=== PATIENT | female | born 2000 | race African-American/Black ===

== ENCOUNTER 2019-05-04 18:04 | Emergency (ER) | payer BC, SELFPAY ==
--- NOTE | 2019-05-04 18:58 | ER ---
Nurse's Notes [facility] Name: Eden Lott Age: 18 yrs Sex: Female : 2000 Arrival Date: 05/04/2019 Time: 18:07 Bed 5 Private MD: Diagnosis: Fracture of distal phalanx of great toe Presentation: 05/03 18:16 Chief complaint: Patient states: R first and second toe pain that began 4 hours ago ss after a frozen pack of ground beef fell onto foot out of the freezer. Coronavirus screen: The patient has NOT traveled to a country currently being monitored by the [facility] within the last 14 days. Proceed with normal triage procedures. Ebola Screen: Patient denies exposure to infectious person. Patient denies travel to an Ebola-affected area in the 21 days before illness onset. Initial Sepsis Screen: Does the patient meet any 2 criteria? No. Patient's initial sepsis screen is negative. Does the patient have a suspected source of infection? No. Patient's initial sepsis screen is negative. Risk Assessment: Do you want to hurt yourself or someone else? Patient reports no desire to harm self or others. 18:16 Method Of Arrival: Ambulatory ss 18:16 Acuity: ERIKA 4 ss Historical: - Allergies: 18:17 No Known Allergies; ss - Home Meds: 18:17 None [Active]; ss - PMHx: 18:17 None; ss - PSHx: 18:17 None; ss - Immunization history:: Adult Immunizations up to date. - Social history:: Smoking status: Patient denies any tobacco usage or history of. Vital Signs: 18:16 BP 103 / 70; Pulse 86; Resp 14; Temp 98.9(TE); Pulse Ox 100% on R/A; Weight 68.04 kg; ss Height 5 ft. 2 in. (157.48 cm); Pain 7/10; 18:16 Body Mass Index 27.44 (68.04 kg, 157.48 cm) ED Course: 18:07 Patient arrived in ED. mr 18:17 Triage completed. ss 18:17 Arm band placed on left wrist. ss 18:25 Tea Arrington FNP-C is PHCP. snw 18:25 Mehrdad Walker MD is Attending Physician. snw 19:00 XRAY Foot RIGHT 2 View In Process Unspecified. EDMS 19:13 Mya Mcmillan, RN is Primary Nurse. tl2 Administered Medications: 19:27 Drug: Tetanus-Diphtheria Toxoid Adult 0.5 ml {Human Resources Representative: [employer]. Exp: tl2 01/23/2021. Lot #: [id number]. } Route: IM; Site: right deltoid; 19:28 Drug: [place] 5 mg-325 mg 1 tabs Route: PO; tl2 19:28 Drug: Motrin 400 mg Route: PO; tl2 19:28 Drug: Hibiclens 4 % 1 application Route: Topical; Site: affected area; tl2 Outcome: 18:57 Discharge ordered by . snyarelis 20:19 Patient left the ED. tl2 Signatures: Dispatcher [employer] EDUT Tea Arrington, EDC STAFF RADIOLOGIST-Fiorella Nieto Shelby, KEE SWEET ss Mya Mcmillan, RN RN tl2
--- NOTE | 2019-05-04 18:59 | EDPHYS ---
Physician Documentation [facility] Name: Eden Lott Age: 18 yrs Sex: Female : 2000 Arrival Date: 05/04/2019 Time: 18:07 Bed 5 Private MD: EMANUEL Physician Mehrdad Walker HPI: 05/03 19:21 This 18 yrs old Black Female presents to ER via Ambulatory with complaints of Foot snw Injury. 19:21 The patient presents with decreased range of motion, pain, that is acute, swelling. The snw complaints affect the right first toe. Context: The problem was sustained at home, resulted from frozen meat fell from freezer onto her toe, the patient can partially bear weight, the patient is able to ambulate, with moderate difficulty. Onset: The symptoms/episode began/occurred suddenly, just prior to arrival. Associated signs and symptoms: Pertinent positives: edema, paresthesias. Treatment prior to arrival includes: no previous treatment. Severity of symptoms: At their worst the symptoms were severe. The patient has not experienced similar symptoms in the past. It is unknown whether or not the patient has recently seen a physician. Historical: - Allergies: 18:17 No Known Allergies; ss - Home Meds: 18:17 None [Active]; ss - PMHx: 18:17 None; ss - PSHx: 18:17 None; ss - Immunization history:: Adult Immunizations up to date. - Social history:: Smoking status: Patient denies any tobacco usage or history of. ROS: 19:20 Constitutional: Negative for fever, chills, and weight loss, Eyes: Negative for injury, snw pain, redness, and discharge, ENT: Negative for injury, pain, and discharge, Neck: Negative for injury, pain, and swelling, Cardiovascular: Negative for chest pain, palpitations, and edema, Respiratory: Negative for shortness of breath, cough, wheezing, and pleuritic chest pain, Abdomen/GI: Negative for abdominal pain, nausea, vomiting, diarrhea, and constipation, Back: Negative for injury and pain, : Negative for injury, bleeding, discharge, and swelling, Skin: Negative for injury, rash, and discoloration, Neuro: Negative for headache, weakness, numbness, tingling, and seizure, Psych: Negative for depression, anxiety, suicide ideation, homicidal ideation, and hallucinations. 19:20 MS/extremity: Positive for injury or acute deformity, decreased range of motion, paresthesias, of the right first toe. Exam: 19:19 Constitutional: This is a well developed, well nourished patient who is awake, alert, snw and in no acute distress. Head/Face: Normocephalic, atraumatic. Eyes: Pupils equal round and reactive to light, extra-ocular motions intact. Lids and lashes normal. Conjunctiva and sclera are non-icteric and not injected. Cornea within normal limits. Periorbital areas with no swelling, redness, or edema. ENT: Nares patent. No nasal discharge, no septal abnormalities noted. Tympanic membranes are normal and external auditory canals are clear. Oropharynx with no redness, swelling, or masses, exudates, or evidence of obstruction, uvula midline. Mucous membranes moist. Neck: Trachea midline, no thyromegaly or masses palpated, and no cervical lymphadenopathy. Supple, full range of motion without nuchal rigidity, or vertebral point tenderness. No Meningismus. Chest/axilla: Normal chest wall appearance and motion. Nontender with no deformity. No lesions are appreciated. Cardiovascular: Regular rate and rhythm with a normal S1 and S2. No gallops, murmurs, or rubs. Normal PMI, no JVD. No pulse deficits. Respiratory: Lungs have equal breath sounds bilaterally, clear to auscultation and percussion. No rales, rhonchi or wheezes noted. No increased work of breathing, no retractions or nasal flaring. Abdomen/GI: Soft, non-tender, with normal bowel sounds. No distension or tympany. No guarding or rebound. No evidence of tenderness throughout. Back: No spinal tenderness. No costovertebral tenderness. Full range of motion. Skin: Warm, dry with normal turgor. Normal color with no rashes, no lesions, and no evidence of cellulitis. MS/ Extremity: Pulses equal, no cyanosis. Neurovascular intact. Full, normal range of motion. Tenderness to right great toe base, + edema, some chronic deformity of right lateral foot noted. Neuro: Awake and alert, GCS 15, oriented to person, place, time, and situation. Cranial nerves II-XII grossly intact. Motor strength 5/5 in all extremities. Sensory grossly intact. Cerebellar exam normal. Normal gait. Psych: Awake, alert, with orientation to person, place and time. Behavior, mood, and affect are within normal limits. Vital Signs: 18:16 BP 103 / 70; Pulse 86; Resp 14; Temp 98.9(TE); Pulse Ox 100% on R/A; Weight 68.04 kg; ss Height 5 ft. 2 in. (157.48 cm); Pain 7/10; 18:16 Body Mass Index 27.44 (68.04 kg, 157.48 cm) MDM: 18:51 Patient medically screened. jamal 19:20 Data reviewed: vital signs, nurses notes. Data interpreted: Pulse oximetry: is 100 %. snw Interpretation: normal. Counseling: I had a detailed discussion with the patient and/or guardian regarding: the historical points, exam findings, and any diagnostic results supporting the discharge/admit diagnosis, radiology results, the need for outpatient follow up, to return to the emergency department if symptoms worsen or persist or if there are any questions or concerns that arise at home. Special discussion: Based on the history and exam findings, there is no indication for further emergent testing or inpatient evaluation. I discussed with the patient/guardian the need to see the orthopedic surgeon for further evaluation of the symptoms. I discussed with the patient/guardian the need to see the primary care provider for further evaluation of the symptoms. 05/03 18:22 Order name: XRAY Foot RIGHT 2 View 05/03 18:57 Order name: [facility]. 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 Exp: tl2 01/23/2021. Lot #: [id number]. } Route: IM; Site: right deltoid; 19:28 Drug: [place] 5 mg-325 mg 1 tabs Route: PO; tl2 19:28 Drug: Motrin 400 mg Route: PO; tl2 19:28 Drug: Hibiclens 4 % 1 application Route: Topical; Site: affected area; tl2 Disposition: 05/04 08:00 Co-signature as Attending Physician, Mehrdad Walker MD I agree with the assessment and jamal plan of care. Disposition: 05/04/19 18:57 Discharged to Home. Impression: Fracture of distal phalanx of great toe. - Condition is Stable. - Discharge Instructions: Cast or Splint Care, Adult, RICE for Routine Care of Injuries, Toe Fracture, VIS, Tetanus, Diphtheria (Td) - [facility]. - Prescriptions for Mobic 7.5 mg Oral Tablet - take 1 tablet by ORAL route once daily take with food; 20 tablet. - Medication Reconciliation Form, Thank You Letter, Antibiotic Education, Prescription Opioid Use form. - Follow up: Emergency Department; When: As needed; Reason: Worsening of condition. Follow up: Private Physician; When: 2 - 3 days; Reason: Recheck today's complaints, Continuance of care, Re-evaluation by your physician. Signatures: Dispatcher [employer] EDMS Mehrdad Walker MD MD cha Therrien, Shelly, GIN POLE OPERATOR-C GIN POLE OPERATOR-Csnw Kristine Iqbal RN RN ss Mya Mcmillan RN RN tl2 Corrections: (The following items were deleted from the chart) 05/03 20:19 18:57 05/04/2019 18:57 Discharged to Home. Impression: Fracture of distal phalanx of tl2 great toe. Condition is Stable. Forms are Medication Reconciliation Form, Thank You Letter, Antibiotic Education, Prescription Opioid Use. Follow up: Emergency Department; When: As needed; Reason: Worsening of condition. Follow up: Private Physician; When: 2 - 3 days; Reason: Recheck today's complaints, Continuance of care, Re-evaluation by your physician. snw
[2019-05-04] MEDS ORDERED: HYDROCODONE/APAP 5/325 MG TAB ONE (19:23)
[2019-05-04] MEDS ORDERED: IBUPROFEN 400 MG TAB ONE (19:24)
[2019-05-04] MEDS ORDERED: TETANUS & DIPHTHERIA TOX,ADULT 0.5 ML VIAL ONE (19:24)
[2019-05-04 20:28] VITALS: BP 103/70; TEMP 98.9; O2SAT 100
--- NOTE | 2019-05-05 12:21 | RAD REPORT ---
EXAM DESCRIPTION: RAD Rt. Foot 2-View 05/03/21 CLINICAL HISTORY: Foot pain status post trauma. FINDINGS: A limited 2-view series obtained. A minimally displaced fracture involves the proximal aspect of the first distal phalanx. No dislocation.
== END 2019-05-04 20:19 | disposition home or self-care (01) ==
LOC: ER 18:04
DX: S92.421A Displaced fracture of distal phalanx of right great toe, initial encounter for closed fracture (principal); W20.8XXA Other cause of strike by thrown, projected or falling object, initial encounter; Y93.9 Activity, unspecified; Y92.010 Kitchen of single-family (private) house as the place of occurrence of the external cause; Z23 Encounter for immunization
CPT/HCPCS: 90471; 90714; 99283

== ENCOUNTER 2019-05-20 01:12 | Emergency (ER) | payer SELFPAY ==
--- NOTE | 2019-05-20 02:05 | ER ---
Nurse's Notes [facility] Name: Eden Lott Age: 18 yrs Sex: Female : 2000 Arrival Date: 05/20/2019 Time: : Bed 14 Private MD: Diagnosis: Nausea and vomiting;Diarrhea, unspecified;Fever, unspecified Presentation: 05/19 01:26 Chief complaint: Patient states: that for the past 2 days she has been having nausea, fc vomiting, diarrhea, body aches, chills, fever, but denies cough and sore throat. Coronavirus screen: Patient denies fever greater than 100.4F, cough, shortness of breath, or difficulty breathing. Ebola Screen: Patient negative for fever greater than or equal to 101.5 degrees Fahrenheit, and additional compatible Ebola Virus Disease symptoms Patient denies exposure to infectious person. Patient denies travel to an Ebola-affected area in the 21 days before illness onset. Initial Sepsis Screen: Does the patient meet any 2 criteria? HR > 90 bpm. No. Patient's initial sepsis screen is negative. Does the patient have a suspected source of infection? No. Patient's initial sepsis screen is negative. Risk Assessment: Do you want to hurt yourself or someone else? Patient reports no desire to harm self or others. Onset of symptoms was May 18, 2019. Care prior to arrival: Medication(s) given: Tylenol, last at 2300 Immodium last at 2300. Transition of care: patient was not received from another setting of care. 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 - Social history:: Smoking status: Patient denies any tobacco usage or history of. Patient/guardian denies using alcohol, street drugs. Screenin:10 Abuse screen: Denies threats or abuse. Denies injuries from another. Nutritional ch2 screening: No deficits noted. Tuberculosis screening: No symptoms or risk factors identified. Fall Risk None identified. Assessment: 02:06 General: Appears in no apparent distress. comfortable, well groomed, well developed, ch2 well nourished, Behavior is calm, cooperative, appropriate for age, Reports chills for fever for feeling ill for 1-2 days. Pain: Denies pain. Neuro: No deficits noted. Level of Consciousness is awake, alert, obeys commands, Oriented to person, place, time, situation, Appropriate for age Wood Block Artist are equal bilaterally Moves all extremities. Full function Gait is steady, Speech is normal. Cardiovascular: No deficits noted. Denies chest pain, Parent/caregiver reports patient has had nausea, vomiting. Respiratory: No deficits noted. Denies cough, shortness of breath labored breathing, pain with respiration, air hunger. GI: Reports diarrhea, nausea, vomiting. : No deficits noted. No signs and/or symptoms were reported regarding the genitourinary system. Denies burning with urination, inability to void. EENT: No deficits noted. No signs and/or symptoms were reported regarding the EENT system. Denies nasal congestion, nasal discharge, difficulty swallowing. Derm: No deficits noted. No signs and/or symptoms reported regarding the dermatologic system. Skin is healthy with good turgor. Musculoskeletal: No deficits noted. No signs and/or symptoms reported regarding the musculoskeletal system. Range of motion: intact in all extremities. Vital Signs: 01:26 BP 108 / 76; Pulse 105; Resp 18; Temp 99.6(O); Pulse Ox 97% on R/A; Weight 72.57 kg fc (R); Height 5 ft. 2 in. (157.48 cm) (R); Pain 8/10; 01:26 Body Mass Index 29.26 (72.57 kg, 157.48 cm) fc ED Course: 01:23 Patient arrived in ED. cl3 01:28 Triage completed. fc 01:29 Arm band placed on Patient placed in an exam room, on a stretcher. fc 01:31 Yanira Pina FNP-C is PHCP. kb 01:31 Mehrdad Walker MD is Attending Physician. kb 02:11 Bed in low position. Call light in reach. ch2 02:53 No provider procedures requiring assistance completed. Patient did not have IV access ch2 during this emergency room visit. Administered Medications: 02:06 Drug: Zofran (Ondansetron) 4 mg Route: PO; ch2 02:52 Follow up: Response: No adverse reaction; Marked relief of symptoms; Nausea is decreasedch2 Outcome: 02:05 Discharge ordered by MD. limon 02:53 Discharged to home ambulatory, with family. ch2 02:53 Condition: improved 02:53 Discharge instructions given to patient, Instructed on discharge instructions, follow up and referral plans. medication usage, Prescriptions given X 2. 02:54 Patient left the ED. ch2 Signatures: Yanira Pina, MIREILLE-C MIREILLE-Flori Lockett, RN RN fc Lara Bryson RN RN ch2 Monae Summers cl3
--- NOTE | 2019-05-20 02:05 | EDPHYS ---
Physician Documentation [facility] Name: Eden Lott Age: 18 yrs Sex: Female : 2000 Arrival Date: 05/20/2019 Time: 01:23 Bed 14 Private MD: ED Physician Mehrdad Walker HPI: 05/19 02:03 This 18 yrs old Black Female presents to ER via Ambulatory with complaints of Fever. kb 02:03 The patient presents to the emergency department with nausea, vomiting, diarrhea. kb Onset: The symptoms/episode began/occurred 2 day(s) ago. Possible causes: unknown. The symptoms are aggravated by nothing. The symptoms are alleviated by nothing. Associated signs and symptoms: Pertinent positives: abdominal pain, diarrhea, fever, nausea, vomiting. Severity of symptoms: At their worst the symptoms were moderate in the emergency department the symptoms are unchanged. The patient has not experienced similar symptoms in the past. The patient has not recently seen a physician. Pt reports fever, n/v/d for 2 days. Both children have similar symptoms. . 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 - Social history:: Smoking status: Patient denies any tobacco usage or history of. Patient/guardian denies using alcohol, street drugs. ROS: 01:55 ENT: Negative for injury, pain, and discharge, Neck: Negative for injury, pain, and kb swelling, Cardiovascular: Negative for chest pain, palpitations, and edema, Respiratory: Negative for shortness of breath, cough, wheezing, and pleuritic chest pain, Back: Negative for injury and pain, MS/Extremity: Negative for injury and deformity, Skin: Negative for injury, rash, and discoloration, Neuro: Negative for headache, weakness, numbness, tingling, and seizure. 01:55 Constitutional: Positive for chills, fever, malaise, Negative for body aches, fatigue, poor PO intake, weight loss. 01:55 Abdomen/GI: Positive for nausea, vomiting, and diarrhea, abdominal cramps, Negative for abdominal distension. Exam: 01:55 Constitutional: This is a well developed, well nourished patient who is awake, alert, kb and in no acute distress. Head/Face: Normocephalic, atraumatic. ENT: Nares patent. No nasal discharge, no septal abnormalities noted. Tympanic membranes are normal and external auditory canals are clear. Oropharynx with no redness, swelling, or masses, exudates, or evidence of obstruction, uvula midline. Mucous membranes moist. Neck: Trachea midline, no thyromegaly or masses palpated, and no cervical lymphadenopathy. Supple, full range of motion without nuchal rigidity, or vertebral point tenderness. No Meningismus. Chest/axilla: Normal chest wall appearance and motion. Nontender with no deformity. No lesions are appreciated. Cardiovascular: Regular rate and rhythm with a normal S1 and S2. No gallops, murmurs, or rubs. Normal PMI, no JVD. No pulse deficits. Respiratory: Lungs have equal breath sounds bilaterally, clear to auscultation and percussion. No rales, rhonchi or wheezes noted. No increased work of breathing, no retractions or nasal flaring. Abdomen/GI: Soft, non-tender, with normal bowel sounds. No distension or tympany. No guarding or rebound. No evidence of tenderness throughout. Skin: Warm, dry with normal turgor. Normal color with no rashes, no lesions, and no evidence of cellulitis. MS/ Extremity: Pulses equal, no cyanosis. Neurovascular intact. Full, normal range of motion. Neuro: Awake and alert, GCS 15, oriented to person, place, time, and situation. Cranial nerves II-XII grossly intact. Motor strength 5/5 in all extremities. Sensory grossly intact. Cerebellar exam normal. Normal gait. Vital Signs: 01:26 BP 108 / 76; Pulse 105; Resp 18; Temp 99.6(O); Pulse Ox 97% on R/A; Weight 72.57 kg (R); Height 5 ft. 2 in. (157.48 cm) (R); Pain 8/10; 01:26 Body Mass Index 29.26 (72.57 kg, 157.48 cm) MDM: 01:38 Patient medically screened. [facility] 02:01 Data reviewed: vital signs, nurses notes. Data interpreted: Pulse oximetry: on room air kb is 97 %. Interpretation: normal. Counseling: I had a detailed discussion with the patient and/or guardian regarding: the historical points, exam findings, and any diagnostic results supporting the discharge/admit diagnosis, the need for outpatient follow up, a family practitioner, to return to the emergency department if symptoms worsen or persist or if there are any questions or concerns that arise at home. ED course: Discussed testing for flu with pt. Test would not change treatment plan, pt decided not to have test done. Will take prescribed meds as needed and increase fluids. Educated to return for inability to tolerate fluids, decreased urine output. . Administered Medications: 02:06 Drug: Zofran (Ondansetron) 4 mg Route: PO; ch2 02:52 Follow up: Response: No adverse reaction; Marked relief of symptoms; Nausea is decreasedch2 Disposition: 07:32 Co-signature as Attending Physician, Mehrdad Walker MD I agree with the assessment and jamal plan of care. Disposition: 05/20/19 02:05 Discharged to Home. Impression: Nausea and vomiting, Diarrhea, unspecified, Fever, unspecified. - Condition is Stable. - Discharge Instructions: Food Choices to Help Relieve Diarrhea, Adult, Viral Gastroenteritis, Adult, [id number]. - Prescriptions for Bentyl 20 mg Oral Tablet - take 1 tablet by ORAL route every 6 hours As needed; 20 tablet. Zofran 4 mg Oral Tablet - take 1 tablet by ORAL route every 6 hours As needed; 20 tablet. - Medication Reconciliation Form, Thank You Letter, Antibiotic Education, Prescription Opioid Use form. - Follow up: Emergency Department; When: As needed; Reason: Worsening of condition. Follow up: Private Physician; When: 2 - 3 days; Reason: Recheck today's complaints, Continuance of care, Re-evaluation by your physician. Signatures: Dispatcher [employer] EDMS Yanira Pina, MIREILLE-C MIREILLE-Mehrdad Castaneda MD MD cha Chretien, Felicia, RN RN Lara Stoddard RN RN ch2 Corrections: (The following items were deleted from the chart) 02:54 02:05 05/20/2019 02:05 Discharged to Home. Impression: Nausea and vomiting; Diarrhea, ch2 unspecified; Fever, unspecified. Condition is Stable. Forms are Medication Reconciliation Form, Thank You Letter, Antibiotic Education, Prescription Opioid Use. Follow up: Emergency Department; When: As needed; Reason: Worsening of condition. Follow up: Private Physician; When: 2 - 3 days; Reason: Recheck today's complaints, Continuance of care, Re-evaluation by your physician. kb
[2019-05-20] MEDS ORDERED: ONDANSETRON 4 MG (ODT) TAB ONE (02:09)
[2019-05-20 03:02] VITALS: BP 108/76; TEMP 99.6; O2SAT 97
== END 2019-05-20 02:54 | disposition home or self-care (01) ==
LOC: ER 01:12
DX: R11.2 Nausea with vomiting, unspecified (principal); R19.7 Diarrhea, unspecified
CPT/HCPCS: 99283

== ENCOUNTER 2019-11-25 10:01 | Emergency (ER) | payer SELFPAY ==
[2019-11-25] MEDS ORDERED: ACETAMINOPHEN 325 MG TABLET ONE (10:31)
--- NOTE | 2019-11-25 10:38 | RAD REPORT ---
EXAM DESCRIPTION: CT - [id number] - 11/25/2019 10:21 am CLINICAL HISTORY: Trauma, head and neck injury. fall, head injury COMPARISON: No comparisons TECHNIQUE: Axial 5 mm thick images of the head were obtained. Axial 2 mm thick images of the cervical spine were obtained with sagittal and coronal reconstruction images generated and reviewed. All CT scans are performed using dose optimization technique as appropriate and may include automated exposure control or mA/KV adjustment according to patient size. FINDINGS: CT HEAD WITHOUT CONTRAST: No acute hemorrhage, hydrocephalus or extra-axial collection is identified.No areas of brain edema or midline shift. The paranasal sinuses and mastoids are clear.The calvarium is intact. CT CERVICAL SPINE WITHOUT CONTRAST: No fracture or subluxation.No prevertebral soft tissues swelling is identified. IMPRESSION: No acute intracranial or cervical spine findings.
--- NOTE | 2019-11-25 10:42 | ER ---
Nurse's Notes [facility] Name: Eden Lott Age: 19 yrs Sex: Female : 2000 Arrival Date: 11/25/2019 Time: 10:02 Bed 5 Private MD: Diagnosis: Superficial injury of head Presentation: 11/24 10:03 Chief complaint: Patient states: Fell approximately 15 minutes ago while taking hot ss shower. Pt reports brief LOC. Now c/o feeling "foggy" and pain to L side of forehead. Care prior to arrival: None. Mechanism of Injury: Fall from standing position. Trauma event details: Injury occurred in the [facility], Injury occurred: at home. Injury occurred: November 25, 2019. 10:03 Acuity: ERIKA 4 ss 10:03 Method Of Arrival: Ambulatory ss 10:11 Coronavirus screen: At this time, the client does not indicate any symptoms associated ss with coronavirus-19. Ebola Screen: Patient denies exposure to infectious person. Patient denies travel to an Ebola-affected area in the 21 days before illness onset. Initial Sepsis Screen: Does the patient meet any 2 criteria? No. Patient's initial sepsis screen is negative. Does the patient have a suspected source of infection? No. Patient's initial sepsis screen is negative. Risk Assessment: Do you want to hurt yourself or someone else? Patient reports no desire to harm self or others. Onset of symptoms was November 25, 2019. Trauma Activation: Not Applicable Physician: ED Physician; Name: ; Notified At: ; Arrived At: Physician: General Surgeon; Name: ; Notified At: ; Arrived At: Physician: Radiology; Name: ; Notified At: ; Arrived At: Physician: Respiratory; Name: ; Notified At: ; Arrived At: Physician: Lab; Name: ; Notified At: ; Arrived At: Historical: - Allergies: 10:13 No Known Allergies; ss - Home Meds: 10:13 none [Active]; ss - PMHx: 10:13 None; ss - PSHx: 10:13 None; ss - Immunization history: Last tetanus immunization: unknown. - Social history:: Smoking status: Patient denies any tobacco usage or history of. Screenin:03 Abuse screen: Denies threats or abuse. Denies injuries from another. Tuberculosis ss screening: Never had TB. 10:59 Nutritional screening: No deficits noted. Fall Risk None identified. sv Primary Survey: 10:03 NO uncontrolled hemorrhage observed. A: The patient is alert. Airway: patent, No ss supplemental oxygen in use on arrival. Oral cavity: clear, Trachea midline. Breathing/Chest: Respiratory pattern: regular, Respiratory effort: spontaneous, unlabored, Breath sounds: clear, bilaterally. Circulation: Pulses: palpable right radial artery, right posterior tibial artery, left radial artery and left posterior tibial artery. Skin color: pink. Disability Alert. Exposure/Environment: All clothing and personal items were removed. Forensic evidence collection is not deemed to be indicated at this time. Items placed in patient belonging bag. There is no evidence of uncontrolled external bleeding. No obvious injuries are noted at this time. Secondary Survey: 10:03 HEENT: No deficits noted. : No signs and/or symptoms were reported regarding the ss genitourinary system. Denies burning with urination, urinary frequency. Musculoskeletal: Circulation, motion, and sensation intact. Range of motion: intact in all extremities. Assessment: 10:20 General: Appears in no apparent distress. comfortable, well groomed, well developed, sv Behavior is calm, cooperative, appropriate for age. Pain: Complains of pain in left frontal area, left side of forehead, left temporal area and left caodaism. Neuro: Level of Consciousness is awake, alert, obeys commands, Oriented to person, place, time, situation, Moves all extremities. Full function Gait is steady, Speech is normal. Respiratory: Respiratory effort is even, unlabored, Respiratory pattern is regular, symmetrical. Derm: Skin is pink, warm \\T\\ dry. Vital Signs: 10:03 BP 119 / 79; Pulse 90; Resp 14; Temp 98.2(TE); Pulse Ox 100% on R/A; Weight 74.84 kg; ss Height 5 ft. 2 in. (157.48 cm); Pain 7/10; 10:03 Body Mass Index 30.18 (74.84 kg, 157.48 cm) [place] Coma Score: 10:03 Eye Response: spontaneous(4). Verbal Response: oriented(5). Motor Response: obeys ss commands(6). Total: 15. Trauma Score (Adult): 10:03 Eye Response: spontaneous(1); Verbal Response: oriented(1); Motor Response: obeys ss commands(2); Systolic BP: > 89 mm Hg(4); Respiratory Rate: 10 to 29 per min(4); [place] Score: 15; Trauma Score: 12 ED Course: 10:02 Patient arrived in ED. ss 10:03 Patient has correct armband on for positive identification. Bed in low position. Call ss light in reach. 10:03 Patient maintains SpO2 saturation greater than 95% on room air. ss 10:06 Triage completed. ss 10:06 Turner Ramos PA is PHCP. [facility] 10:06 Steffen Hinkle MD is Attending Physician. [facility] 10:10 Lisa Adkins, RN is Primary Nurse. sv 10:13 Arm band placed on right wrist. ss 10:18 CT completed. Patient tolerated procedure well. Patient moved to CT via wheelchair. Patient moved back from CT. 10:21 CT Head C Spine In Process Unspecified. EDMS 10:26 Awaiting radiology results. sv 10:58 No provider procedures requiring assistance completed. Patient did not have IV access sv during this emergency room visit. Administered Medications: 10:25 Drug: Tylenol 650 mg Route: PO; vg1 10:58 Follow up: Response: No adverse reaction sv Outcome: 10:42 Discharge ordered by MD. [facility] 11:04 Discharged to home ambulatory, with family. em 11:04 Condition: good 11:04 Discharge instructions given to patient, family, Instructed on discharge instructions, follow up and referral plans. medication usage, Demonstrated understanding of instructions, follow-up care, medications, Prescriptions given X 1. 11:05 Patient left the ED. em Signatures: Dispatcher [employer] EMANUELTX Lisa Adkins, Turner Ivory RN, PA PA Ish Cota, Kristine Garnett RN, Elana Batres RN, Victoria RN RN vg1
--- NOTE | 2019-11-25 10:42 | EDPHYS ---
Physician Documentation [facility] Name: Eden Lott Age: 19 yrs Sex: Female : 2000 Arrival Date: 11/25/2019 Time: 10:02 Bed 5 Private MD: ED Physician Steffen Hinkle HPI: 11/24 10:08 This 19 yrs old Black Female presents to ER via Ambulatory with complaints of Head jmm Injury With LOC-Adult. 10:08 The patient or guardian reports injury, pain. Onset: The symptoms/episode jmm began/occurred acutely, just prior to arrival. Associated signs and symptoms: Loss of consciousness: This patient experience a loss of consciousness, that was brief, Pertinent negatives: vomiting. This is a 19 year old female with no chronic medical conditions that presents to the ED with complaints of left parietal scalp pain after slipping and falling in the shower. Patient admitted to LOC which was transient. Denies nausea or vomiting. . Historical: - Allergies: 10:13 No Known Allergies; ss - Home Meds: 10:13 none [Active]; ss - PMHx: 10:13 None; ss - PSHx: 10:13 None; ss - Immunization history: Last tetanus immunization: unknown. - Social history:: Smoking status: Patient denies any tobacco usage or history of. ROS: 10:08 Constitutional: Negative for fever, chills, and weight loss, Cardiovascular: Negative jmm for chest pain, palpitations, and edema, Respiratory: Negative for shortness of breath, cough, wheezing, and pleuritic chest pain. 10:08 Neuro: Positive for headache. 10:08 All other systems are negative. Exam: 10:08 Constitutional: This is a well developed, well nourished patient who is awake, alert, jmm and in no acute distress. 10:08 Eyes: EOMI, no conjunctival erythema appreciated ENT: Moist Mucus Membranes Neck: Trachea midline, Supple Chest/axilla: Normal chest wall appearance and motion. Cardiovascular: Regular rate and rhythm. No edema appreciated Respiratory: Normal respirations, no respiratory distress appreciated Abdomen/GI: Non distended, soft Back: Normal ROM Skin: General appearance color normal MS/ Extremity: Moves all extremities, no obvious deformities appreciated, no edema noted to the lower extremities Neuro: Awake and alert, normal gait Psych: Behavior is normal, Mood is normal, Patient is cooperative and pleasant 10:08 Head/face: Noted is Sy signs, on the left. Vital Signs: 10:03 BP 119 / 79; Pulse 90; Resp 14; Temp 98.2(TE); Pulse Ox 100% on R/A; Weight 74.84 kg; ss Height 5 ft. 2 in. (157.48 cm); Pain 7/10; 10:03 Body Mass Index 30.18 (74.84 kg, 157.48 cm) ss [place] Coma Score: 10:03 Eye Response: spontaneous(4). Verbal Response: oriented(5). Motor Response: obeys ss commands(6). Total: 15. Trauma Score (Adult): 10:03 Eye Response: spontaneous(1); Verbal Response: oriented(1); Motor Response: obeys ss commands(2); Systolic BP: > 89 mm Hg(4); Respiratory Rate: 10 to 29 per min(4); [place] Score: 15; Trauma Score: 12 MDM: 10:08 Patient medically screened. [facility] 10:41 Data reviewed: vital signs, nurses notes. Counseling: I had a detailed discussion with mahad the patient and/or guardian regarding: the historical points, exam findings, and any diagnostic results supporting the discharge/admit diagnosis, radiology results, the need for outpatient follow up, to return to the emergency department if symptoms worsen or persist or if there are any questions or concerns that arise at home. 10:41 ED course: Patient imaging studies negative. Patient is advised to follow up with pcp mahad and otherwise given strict return precautions. Patient understood and agrees with the plan of care. . 11/24 10:08 Order name: CT Head C Spine; Complete Time: 10:41 [facility] Administered Medications: 10:25 Drug: Tylenol 650 mg Route: PO; vg1 10:58 Follow up: Response: No adverse reaction sv Disposition: 11:49 Co-signature as Attending Physician, Steffen Hinkle MD I agree with the assessment and kdr plan of care. Disposition: 11/25/19 10:42 Discharged to Home. Impression: Superficial injury of head. - Condition is Stable. - Discharge Instructions: Head Injury, Adult. - Prescriptions for orphenadrine citrate 100 mg Oral Tablet Sustained Release - take 1 tablet by ORAL route 2 times per day As needed; 20 tablet. - Medication Reconciliation Form, Thank You Letter, Antibiotic Education, Prescription Opioid Use, Family Work Release form. - Follow up: Private Physician; When: 2 - 3 days; Reason: Recheck today's complaints, Continuance of care, Re-evaluation by your physician. Signatures: Dispatcher [employer] EDMS Steffen Hinkle MD MD kdr Mickail, Joel, PA PA jmm Munoz, Edgar, KEE RN em Kristine Iqbal RN RN Krissy Wellington RN RN vg1 Lisa Adkins RN Corrections: (The following items were deleted from the chart) 11:05 10:42 11/25/2019 10:42 Discharged to Home. Impression: Superficial injury of head. em Condition is Stable. Forms are Medication Reconciliation Form, Thank You Letter, Antibiotic Education, Prescription Opioid Use. Follow up: Private Physician; When: 2 - 3 days; Reason: Recheck today's complaints, Continuance of care, Re-evaluation by your physician. edwige
[2019-11-25 11:10] VITALS: BP 119/79; TEMP 98.2; O2SAT 100
== END 2019-11-25 11:05 | disposition home or self-care (01) ==
LOC: ER 10:01
DX: S00.90XA Unspecified superficial injury of unspecified part of head, initial encounter (principal); W18.2XXA Fall in (into) shower or empty bathtub, initial encounter; Y93.E1 Activity, personal bathing and showering; Y92.9 Unspecified place or not applicable
CPT/HCPCS: 70450; 72125; 99284

== ENCOUNTER 2021-04-01 22:16 | Emergency (ER) | payer SELFPAY ==
--- OUTSIDE RECORDS SUMMARY | 2021-04-01 22:19 | XMS REPORT | Continuity of Care Document ---
:2000 Author Organization [facility] t Address [address] [place] [id number] Care Team Providers Name Role Phone Smith Attending Clinician Payers Payer Name Policy Type Policy Number Effective Date Expiration Date Jc RAMIREZ [id number] 1992 00:00:00 Advance Directives Directive Decision Effective Termination Comments Source Date Date Healthcare Agents on N/A [facility] FileNameRelationshipHealthcare [facility] Agent Medical RelationshipCommunicationKettering Health [facility] PartnerHealth Care [phone] (Mobile)[facility]annine [facility] [phone] (Mobile) Problems Condition Condition Condition Status Onset Resolution Last Treating Co mments Source Name Details Category Date Date Treatment Clinician Date Rubella Rubella Disease Active Univers non-immune non-immune 03-29 it y of status, status, 00:00: [place] antepartum antepartum 00 Me dical Branch Susceptibl Susceptibl Disease Active Overview : Univers e to e to 03-29 Address ity of varicella varicella 00:00: pp Poornima travis (non-immun (non-immun 00 Me dical e), e), Branch currently currently High risk High risk Disease Active Uni vers , , 03-28 [place] [facility] History of History of Disease Active U nivers 2 it [place] of hemorrhage hemorrhage [place] , , 00 Medical currently currently Bran ch History of History of Disease Active U nivers 03-28 it [place] of depression [place] Obesity in Obesity in Disease Active U nivers , , 03-28 it y of [place] [facility] Bloody Bloody Disease Active Univers show and show and 2- ity of cramping cramping 00:00: [place] in early in early 00 Medica l Bran ch Family Family Disease Active Univers history of history of 03-28 it [place] of congenital [place] anomalies anomalies [address] [place] [address] Allergies, Adverse Reactions, Alerts Allergy Allergy Status Severity Reaction(s) Onset Inactive Treating Comm ents Source Name Type Date Date Clinician NO KNOWN Drug Active Univers ALLERGIE Class ity of S [facility] Social History Social Habit Start Date Stop Date Quantity Comments Source Exposure to Not sure [facility] SARS-CoV-2 [facility] (event) Branch Tobacco use and 2018-07-27 2018-07-27 Never used Universit y of exposure 00:00:00 00:00:00 [facility] Alcohol intake 2018-07-27 2018-07-27 Current University 00:00:00 00:00:00 non-drinker of [facility] alcohol [place] (finding) Sex Assigned At [birth year] Universit y of 00:00:00 00:00:00 [facility] Smoking Status Start Date Stop Date Source Never smoker [facility] Medications Ordered Filled Start Stop Current Ordering Indication Dosage Frequency Signature Comments Components Source Medication Medication Date Date Medication? Clinician (SIG) Name Name albuterol Yes [id number] 2{puff} Inhale 2 Univers 90 5-10 Puffs ity of mcg/actuati 00:00: every 4 [place] as on inhaler 00 (four) Medical hours as Branch needed for Wheezing or Shortness of Breath. benzonatate Yes [id number] 100mg Take 1 Univers 100 mg 5-10 capsule by ity of capsule 00:00: mouth 3 [place] 00 (three) Medical times Branch daily as needed for Cough. Yes 1{tbl} Take 1 Unive rs VIT 2-01 tablet by ity of CALC,IRON,F 14:42: mouth [place] OLIC 29 daily. Medical ( Branch VITAMIN ORAL) PNV 67-iron Yes 1{tbl} Take 1 Un nabeel ps-folate 2-01 tablet by ity o f no.1-dha 00:00: mouth [place] (VITAFOL 00 daily. Medical ULTRA) 29 Branch mg iron- 1 mg-200 mg Cap Immunizations Ordered Filled Immunization Date Status Comments Sour e Immunization Name Name Influenza Virus 2017-03-28 Completed Universit y of Vaccine Quad IM 3+ 00:00:00 [facility] Vital Signs Vital Name Observation Time Observation Value Comments Source Systolic blood 2020-07-04 19:23:00 120 mm[Hg] Univer sity of pressure [facility] Diastolic blood 2020-07-04 19:23:00 79 mm[Hg] Unive rsity of pressure [facility] Heart rate 2020-07-04 19:23:00 86 /min Universi ty of [facility] Body temperature 2020-07-04 19:23:00 37.28 Parul [facility] ersity [facility] Respiratory rate 2020-07-04 19:23:00 20 /min [facility] weight 2020-07-04 19:23:00 78.926 kg Universi ty of [facility] Oxygen saturation in 2020-07-04 19:23:00 100 /min [facility] Arterial blood by [facility] Pulse oximetry Branch Procedures Procedure Date / Time Performed Performing Clinician [facility] e ADC,CLC OR LCC ONLY - 2020-07-04 19:58:00 [facility] DIRECT ANTIGEN COVID-19 (ID NOW 2020-07-04 19:58:00 hSakeel Smith [facility] RAPID TESTING) [facility] NOTICE OF PRIVACY 2020-07-04 19:18:39 Doctor Unassigned, No [facility] Name Medical [place] CONSENT/REFUSAL FOR 2020-07-04 19:18:16 [facility], [facility] AND Name Medical [place] TREATMENT Encounters Start End Encounter Admission Attending Care Care Encounter Source Date/Time Date/Time Type Type Clinicians Facility Department ID 2020-12-[address] [facility] [id number] Univers 18:10:57 ity of [facility] 2020-07-04 2020-07-04 Emergency LEEANNE Smith [id number] Univers 14:27:00 16:33:00 Shakeel Davison [id number] i ty of [place] [id number] [facility] [id number] [address] Results Test Description Test Time Test Comments Results Result Comments Source ADC,CLC OR LCC ONLY - INFLUENZA A & B DIRECT ANTIGEN 2020-06 20:41:10 Test Item Value Reference Range Interpretation Comme nts Influenza A (test code = 92224-2) Negative Negative Influenza B (test code = 08783-8) Negative Negative Lab Interpretation (test code = 25847-7) Normal [facility]ID TESTING)2020-07-04 20:38:26 Test Item Value Reference Range Interpretation Comments SARS-CoV-2 Rapid ID NOW Not Detected Not Detected (test code = 91404-1) ANU (test code = ANU) ID NOW COVID-19 Assay is an isothermal nucleic acid amplification test intended for the qualitative detection of nucleic acid from SARS-CoV-2 viral RNA in nasopharyngeal (CAREER AGENT) specimens. It is used under Emergency Use Authorization (EUA) by FDA. The limit of detection (LOD) of the assay is 125 Genome Equivalents/mL. A positive result is indicative of the presence of SARS-CoV-2 RNA. ?Clinical correlation with patient history and other diagnostic information is necessary to determine patient infection status. A negative (Not Detected) result does not preclude SARS-CoV-2 infection. In patients with clinical symptoms and other tests that are consistent with SARS-CoV-2 infection, negative results should be treated as presumptive negative and a new specimen should be tested with alternative PCR molecular test. Invalid: Please collect a new specimen for repeat patient testing if clinically indicated. Lab Interpretation Normal (test code = 92188-2) [facility]
[2021-04-01 22:46] LABS: Urine Blood Negative (Negative); Urine Glucose Trace (Negative); Urine Protein 2+ (Negative)
[2021-04-01] MEDS ORDERED: CEFTRIAXONE 1000 MG/VIAL ONE (22:55)
[2021-04-01] MEDS ORDERED: KETOROLAC 30 MG/ML INJ ONE (22:56)
[2021-04-01 23:12] LABS: Urine Bacteria 20-50 /HPF (<20); Urine Mucus 2+ /HPF (NONE SEEN); Urine RBC <5 /HPF (NONE SEEN)
--- NOTE | 2021-04-01 23:24 | EDPHYS ---
Physician Documentation [facility] Name: Eden Lott Age: 20 yrs Sex: Female : 2000 Arrival Date: 04/01/2021 Time: 22:20 Bed 18 Private MD: ED Physician Marlon Andrew HPI: 04/01 22:47 This 20 yrs old Black Female presents to ER via Ambulatory with complaints of Fever, cp Low Back Pain. 22:47 The patient reports fever, that was measured at 101 degrees Fahrenheit. Onset: The cp symptoms/episode began/occurred today. Associated signs and symptoms: Pertinent positives: nausea, low back pain, dysuria. 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 - Social history:: Smoking status: Reported history of juuling and/or vaping. ROS: 22:48 Eyes: Negative for injury, pain, redness, and discharge. cp 22:48 Constitutional: Negative for body aches, chills, fever, poor PO intake. 22:48 ENT: Negative for drainage from ear(s), ear pain, sore throat, difficulty swallowing, difficulty handling secretions. 22:48 Cardiovascular: Negative for chest pain. 22:48 Respiratory: Negative for cough, shortness of breath, wheezing. 22:48 Abdomen/GI: Positive for nausea, Negative for abdominal pain, vomiting, diarrhea, constipation. 22:48 Back: Positive for pain at rest. 22:48 : Positive for urinary symptoms, Negative for vaginal bleeding, vaginal discharge. 22:48 Neuro: Negative for altered mental status, headache, numbness, weakness. 22:48 All other systems are negative. Exam: 22:49 Head/Face: Normocephalic, atraumatic. cp 22:49 Constitutional: The patient appears in no acute distress, alert, awake, non-toxic, well developed, well nourished. 22:49 Cardiovascular: Rate: tachycardic. 22:49 Respiratory: the patient does not display signs of respiratory distress, Respirations: normal, no use of accessory muscles, no retractions, labored breathing, is not present. 22:49 Abdomen/GI: Exam negative for discomfort, distension, guarding, Inspection: abdomen appears normal. 22:49 Back: CVA tenderness, that is mild, is noted bilaterally. Vital Signs: 22:24 BP 115 / 74; Pulse 104; Resp 18; Temp 98.4(O); Pulse Ox 97% on R/A; Weight 67.59 kg; tw5 Height 5 ft. 2 in. (157.48 cm); Pain 8/10; 22:39 BP 114 / 69; Pulse 105; Resp 18; Temp 98.2(O); Pulse Ox 99% on R/A; Pain 4/10; alyson 23:28 BP 116 / 77; Pulse 98; Resp 16; Temp 98.2; Pulse Ox 100% on R/A; Pain 0/10; alyson 22:24 Body Mass Index 27.25 (67.59 kg, 157.48 cm) tw5 MDM: 22:45 Patient medically screened. cp 23:00 Differential diagnosis: UTI, pyelonephritis, kidney stone. cp 23:22 Data reviewed: vital signs, nurses notes, lab test result(s). cp 23:22 Counseling: I had a detailed discussion with the patient and/or guardian regarding: the cp historical points, exam findings, and any diagnostic results supporting the discharge/admit diagnosis, lab results, to return to the emergency department if symptoms worsen or persist or if there are any questions or concerns that arise at home. Response to treatment: the patient's symptoms have mildly improved after treatment, VSS. Patient appears non-toxic. Will discharge to home for continued monitoring. 04/01 22:46 Order name: Urine Microscopic Only; Complete Time: 23:13 cp 04/01 22:47 Order name: Urine Dipstick-Ancillary; Complete Time: 23:12 EDMS 04/01 23:12 Interpretation: Normal except: UKET 1+; UPROT 2+; U NIT Positive; UESTR 3+. cp 04/01 22:47 Order name: Urine --Ancillary (enter results); Complete Time: 23:12 mw2 04/01 23:13 Order name: Urine Culture EDMS 04/01 22:46 Order name: Urine Test (obtain specimen); Complete Time: 22:46 cp 04/01 22:46 Order name: Urine Dipstick-Ancillary (obtain specimen); Complete Time: 22:46 cp Administered Medications: 23:00 Drug: Ketorolac 30 mg Route: IM; Site: left gluteus; alyson 23:30 Follow up: Response: No adverse reaction alyson 23:00 Drug: Rocephin (cefTRIAXone) 1 grams Route: IM; Site: left gluteus; alyson 23:29 Follow up: Response: No adverse reaction alyson Point of Care Testing: Urine : 22:00 hCG Reading: Negative; Control Reading: Positive; alyson Disposition: 04/02 05:19 Co-signature as Attending Physician, Marlon Andrew MD. [email or web address] Disposition Summary: 04/01/21 23:23 Discharge Ordered Location: Home cp Problem: new cp Symptoms: have improved cp Condition: Stable cp Diagnosis - UTI/ Urinary tract infection, site not specified cp Followup: cp - With: Private Physician - When: 2 - 3 days - Reason: Worsening of condition Discharge Instructions: - Discharge Summary Sheet cp - Urinary Tract Infection, Adult cp Forms: - Medication Reconciliation Form cp - Thank You Letter cp - Antibiotic Education cp - Prescription Opioid Use cp Prescriptions: - Zofran 4 mg Oral Tablet - take 1 tablet by ORAL route every 12 hours As needed; 20 tablet; Refills: 0, cp Product Selection Permitted - Bactrim DS 800-160 mg Oral Tablet - take 1 tablet by ORAL route every 12 hours for 7 days; 14 tablet; Refills: 0, cp Product Selection Permitted - Ibuprofen 800 mg Oral Tablet - take 1 tablet by ORAL route every 8 hours As needed take with food; 30 tablet; cp Refills: 0, Product Selection Permitted Signatures: Dispatcher [employer] Mehrdad Gunn PA PA cp Marlon Andrew MD MD [id number] Henny Faria 5 Joycelyn Loya, RN RN alyson
--- NOTE | 2021-04-01 23:24 | ER ---
Nurse's Notes [facility] Name: Eden Lott Age: 20 yrs Sex: Female : 2000 Arrival Date: 04/01/2021 Time: 22:20 Bed 18 Private MD: Diagnosis: UTI/ Urinary tract infection, site not specified Presentation: 04/01 22:24 Chief complaint: Patient states: "I have had a fever and lower back pain. I have been tw5 trying to drink a lot of water and cranberry juice thinking I had a kidney infection. It is either a dull ache, but sometimes it becomes a really sharp pain. I took some Motrin earlier and that only helped with the fever but not the pain. My fever was 101 earlier.". Coronavirus screen: Vaccine status: Patient reports being unvaccinated. Ebola Screen: Patient negative for fever greater than or equal to 101.5 degrees Fahrenheit, and additional compatible Ebola Virus Disease symptoms Patient denies exposure to infectious person. Patient denies travel to an Ebola-affected area in the 21 days before illness onset. Initial Sepsis Screen: Does the patient meet any 2 criteria? HR > 90 bpm. Does the patient have a suspected source of infection? Yes: Dysuria/Frequency/Urgency/UTI. Risk Assessment: Do you want to hurt yourself or someone else? Patient reports no desire to harm self or others. Onset of symptoms was April 01, 2021. 22:24 Method Of Arrival: Ambulatory tw5 22:24 Acuity: ERIKA 3 tw5 Triage Assessment: 22:26 General: Appears uncomfortable, Behavior is calm, cooperative, appropriate for age. tw5 Pain: Complains of pain in low back area Pain currently is 8 out of 10 on a pain scale. 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 - Social history:: Smoking status: Reported history of juuling and/or vaping. Screenin:27 Abuse screen: Denies threats or abuse. Denies injuries from another. Nutritional tw5 screening: No deficits noted. Tuberculosis screening: No symptoms or risk factors identified. Fall Risk No fall in past 12 months (0 pts). Assessment: 22:37 General: Appears in no apparent distress. uncomfortable, Behavior is calm, cooperative, alyson Reports frequency and urgency when urinating and back pain. Pain: Complains of pain in back. Neuro: No deficits noted. Respiratory: No deficits noted. GI: No deficits noted. : Reports urgency, urinary frequency, since yesterday. 23:07 General: The pt acknowledged understanding of not taking any additional ibuprofen, alyson given that she had Toradol. She and her mother acknowledged that they will medicate with Tylenol, should she need anything, once she is discharged. . 23:33 General: I called the lab, as I sent the urine culture with the micro, earlier. They alyson said that they have it, so I alerted them to the new order. . Vital Signs: 22:24 BP 115 / 74; Pulse 104; Resp 18; Temp 98.4(O); Pulse Ox 97% on R/A; Weight 67.59 kg; tw5 Height 5 ft. 2 in. (157.48 cm); Pain 8/10; 22:39 BP 114 / 69; Pulse 105; Resp 18; Temp 98.2(O); Pulse Ox 99% on R/A; Pain 4/10; alyson 23:28 BP 116 / 77; Pulse 98; Resp 16; Temp 98.2; Pulse Ox 100% on R/A; Pain 0/10; alyson 22:24 Body Mass Index 27.25 (67.59 kg, 157.48 cm) tw5 ED Course: 22:20 Patient arrived in ED. ja2 22:20 Mehrdad Perez PA is PHCP. cp 22:20 Marlon Andrew MD is Attending Physician. cp 22:26 Triage completed. tw5 22:26 Arm band placed on left wrist. tw5 22:31 Joycelyn Loya, KEE is Primary Nurse. alyson 22:39 Patient has correct armband on for positive identification. Bed in low position. Call alyson light in reach. Side rails up X 1. Adult w/ patient. 22:39 No provider procedures requiring assistance completed. alyson 22:49 Urine Microscopic Only Sent. alyson 23:29 Urine Culture Sent. alyson 23:44 Patient did not have IV access during this emergency room visit. alyson Administered Medications: 23:00 Drug: Ketorolac 30 mg Route: IM; Site: left gluteus; alyson 23:30 Follow up: Response: No adverse reaction alyson 23:00 Drug: Rocephin (cefTRIAXone) 1 grams Route: IM; Site: left gluteus; alyson 23:29 Follow up: Response: No adverse reaction alyson Point of Care Testing: Urine : 22:00 hCG Reading: Negative; Control Reading: Positive; alyson Outcome: 22:40 Condition: stable alyson 23:23 Discharge ordered by . cp 23:43 Discharged to home ambulatory, with family. alyson 23:43 Discharge instructions given to patient, Instructed on discharge instructions, follow up and referral plans. medication usage, Demonstrated understanding of instructions, follow-up care, medications, Prescriptions given X 3. 23:44 Patient left the ED. alyson Signatures: Mehrdad Perez PA PA cp Alexander, Jessica ja2 Wood, Tiffany tw5 Joycelyn Loya, RN RN alyson
[2021-04-01 23:51] VITALS: TEMP 98.2
[2021-04-01 23:52] VITALS: BP 116/77; O2SAT 100
== END 2021-04-01 23:44 | disposition home or self-care (01) ==
LOC: ER 22:16
DX: N39.0 Urinary tract infection, site not specified (principal)
CPT/HCPCS: 81003; 81015; 81025; 87086; 87088; 96372; 99283

== ENCOUNTER 2021-07-11 11:53 | Emergency (ER) | payer SELFPAY ==
--- OUTSIDE RECORDS SUMMARY | 2021-07-11 11:56 | XMS REPORT | Continuity of Care Document ---
:2000 Author Organization [facility] t Address [facility] Siu [address] [place] [address] Care Team Providers Name Role Phone Smith Attending Clinician Payers Payer Name Policy Type Policy Number Effective Date Expiration Date Jc RAMIREZ [id number] 1992 00:00:00 Problems Condition Condition Condition Status Onset Resolution Last Treating Co mments Source Name Details Category Date Date Treatment Clinician Date Rubella Rubella Disease Active Univers non-immune non-immune 03-29 it y of status, status, 00:00: [place] antepartum antepartum 00 Me dical Branch Susceptibl Susceptibl Disease Active Overview : Univers e to e to 03-29 Address ity of varicella varicella 00:00: pp Po[place] s (non-immun (non-immun 00 Me dical e), e), Branch currently currently High risk High risk Disease Active Uni vers , , 03-28 [place] History of History of Disease Active U nivers 03-28 it [place] of hemorrhage [place] Medical currently currently Bran ch History of History of Disease Active U nivers 03-28 [place] depression [place] Obesity in Obesity in Disease Active U nivers , , 03-28 it y of [place] Bloody Bloody Disease Active Univers show and show and 03-28 ity of cramping cramping 00:00: [place] in early in early 00 Medica l Bran ch Family Family Disease Active Univers history of history of 03-28 [place] of congenital [place] anomalies 00 [facility] Allergies, Adverse Reactions, Alerts Allergy Allergy Status Severity Reaction(s) Onset Inactive Treating Comm ents Source Name Type Date Date Clinician NO KNOWN Drug Active Univers ALLERGIE Class ity of S [facility] Social History Social Habit Start Date Stop Date Quantity Comments Source Exposure to Not sure [facility] SARS-CoV-2 [facility] (event) Branch Tobacco use and 2018-07-27 2018-07-27 Never used Universit y of exposure 00:00:00 00:00:00 [facility] Alcohol intake 2018-07-27 2018-07-27 Current University 00:00:00 00:00:00 non-drinker of [facility] alcohol [place] (finding) Sex Assigned At [birth year] Universit y of 00:00:00 00:00:00 [facility] Smoking Status Start Date Stop Date Source Never smoker [facility] Medical [place] Medications Ordered Filled Start Stop Current Ordering Indication Dosage Frequency Signature Comments Components Source Medication Medication Date Date Medication? Clinician (SIG) Name Name albuterol Yes [id number] 2{puff} Inhale 2 Univers 90 5-10 Puffs ity of mcg/actuati 00:00: every 4 Rober as on inhaler 00 (four) Medical hours as Branch needed for Wheezing or Shortness of Breath. benzonatate Yes [id number] 100mg Take 1 Univers 100 mg 5-10 [...] Immunizations Ordered Filled Immunization Date Status Comments Sourc e Immunization Name Name Influenza Virus 2017-03-28 Completed Universit y of Vaccine Quad IM 3+ 00:00:00 [facility] Branch Vital Signs Vital Name Observation Time Observation Value Comments Source Systolic blood 2020-07-04 19:23:00 120 mm[Hg] Univer sity of pressure [facility] Diastolic blood 2020-07-04 19:23:00 79 mm[Hg] Unive rsity of pressure [facility] Heart rate 2020-07-04 19:23:00 86 /min Universi ty of [facility] Body temperature 2020-07-04 19:23:00 37.28 Parul [facility] Respiratory rate 2020-07-04 19:23:00 20 /min [facility] Body weight 2020-07-04 19:23:00 78.926 kg Universi [facility] Oxygen saturation in 2020-07-04 19:23:00 100 /min [facility] Arterial blood by [facility] Pulse oximetry Branch Procedures Procedure Date / Time Performed Performing Clinician Sourc e ADC,CLC OR LCC ONLY - 2020-07-04 19:58:00 Shakeel Smith [facility] & B [facility] DIRECT ANTIGEN COVID-19 (ID NOW 2020-07-04 19:58:00 Shakeel Smith [facility] RAPID TESTING) Medical [place] NOTICE OF PRIVACY 2020-07-04 19:18:39 Doctor Unassigned, No [facility] CONSENT/REFUSAL FOR 2020-07-04 19:18:16 Doctor Unassigned, No [facility] DI[facility]IS AND Name [facility] TREATMENT Encounters Start End Encounter Admission Attending Care Care Encounter Source Date/Time Date/Time Type Type Clinicians Facility Department ID 2020-12-25 Emergency [facility] [id number] Univers 18:10:57 ity of [facility] 2020-07-04 2020-07-04 Emergency Singer [facility] [id number] Univers 14:27:00 16:33:00 Shakeel Davison [id number] ty [facility] [id number] [facility] [id number] [facility] 084 Branch Results Test Description Test Time Test Comments Results Result Comments Source ADC,CLC OR LCC ONLY - INFLUENZA A & B DIRECT ANTIGEN 2020-06 20:41:10 Test Item Value Reference Range Interpretation Comme nts Influenza A (test code = 06514-2) Negative Negative Influenza B (test code = 44413-9) Negative Negative Lab Interpretation (test code = 63092-2) Normal [facility]ID TESTING)2020-07-04 20:38:26 Test Item Value Reference Range Interpretation Comments SARS-CoV-2 Rapid ID NOW Not Detected Not Detected (test code = 18916-9) ANU (test code = ANU) ID NOW COVID-19 Assay is an isothermal nucleic acid amplification test intended for the qualitative detection of nucleic acid from SARS-CoV-2 viral RNA in nasopharyngeal (AUTOMOBILE DESIGNER) specimens. It is used under Emergency Use [...] indicated. Lab Interpretation Normal (test code = 36984-5) [facility]
[2021-07-11 12:43] LABS: Urine Blood 3+ (Negative); Urine Glucose Negative (Negative); Urine Protein Negative (Negative); Urine Specific Gravity 1.025 (1.005-1.030)
[2021-07-11 13:25] LABS: Urine Specific Gravity/Preg 1.025 (1.005-1.030)
--- NOTE | 2021-07-11 13:37 | ER ---
Nurse's Notes [facility] Name: Eden Lott Age: 20 yrs Sex: Female : 2000 Arrival Date: 07/11/2021 Time: 11:55 Bed 14 Private MD: Diagnosis: Presentation: 07/11 12:10 Chief complaint: Patient states: Vaginal bleeding with clots and foul odor. Patient ww states she thinks she has already had a period this month. Coronavirus screen: Client denies travel out of the [place] in the last 14 days. Ebola Screen: Patient denies travel to an Ebola-affected area in the 21 days before illness onset. Initial Sepsis Screen: Does the patient meet any 2 criteria? No. Patient's initial sepsis screen is negative. Does the patient have a suspected source of infection? No. Patient's initial sepsis screen is negative. Risk Assessment: Do you want to hurt yourself or someone else? Patient reports no desire to harm self or others. Onset of symptoms is unknown. 12:10 Method Of Arrival: Ambulatory ww 12:10 Acuity: ERIKA 3 ww Triage Assessment: 12:12 General: Appears in no apparent distress. Behavior is calm, cooperative. Pain: Denies ww pain. Neuro: Level of Consciousness is awake, alert, obeys commands, Oriented to person, place, time, situation, Moves all extremities. Gait is steady, Speech is normal. Cardiovascular: Patient's skin is warm and dry. Respiratory: Airway is patent Respiratory effort is even, unlabored, Respiratory pattern is regular, symmetrical. Historical: - Allergies: 12:12 No Known Allergies; ww - Home Meds: 12:12 Zoloft Oral [Active]; ww - PMHx: 12:12 Anemia; ww - PSHx: 12:12 None; ww - Immunization history:: Adult Immunizations not up to date. - Social history:: Smoking status: Patient denies any tobacco usage or history of. Assessment: 13:36 Reassessment: Pt came to triage "I am leaving, I do not think I am and I do ww not have time to wait any longer." Advised patient to wait, the wait time would not be long, pt did not agree and pt eloped at this time. Vital Signs: 12:10 BP 121 / 89; Pulse 95; Resp 18; Temp 98.1; Pulse Ox 97% ; Weight 63.5 kg; Height 5 ft. ww 2 in. (157.48 cm); Pain 0/10; 12:10 Body Mass Index 25.61 (63.50 kg, 157.48 cm) ww ED Course: 11:55 Patient arrived in ED. mr 12:12 Triage completed. ww 12:12 Arm band placed on. ww 12:19 [facility] mahad 12:19 Mehrdad Walker MD is Attending Physician. mahad Administered Medications: No medications were administered Outcome: 13:36 Patient left the ED. ww Signatures: Turner Ramos PA PA jmm Rivera, Mary mr Wood, Whitney, RN RN ww
[2021-07-11 13:41] VITALS: BP 121/89; TEMP 98.1; O2SAT 97
--- NOTE | 2021-07-12 13:37 | EDPHYS ---
Physician Documentation [facility] Name: Eden Lott Age: 20 yrs Sex: Female : 2000 Arrival Date: 07/11/2021 Time: 11:55 Bed 14 Private MD: EMANUEL Physician Mehrdad Walker HPI: 07/11 12:27 This 20 yrs old Black Female presents to ER via Ambulatory with complaints of vaginal jmm bleeding,possible . 12:27 The patient presents with vaginal bleeding that is. Onset: The symptoms/episode jmm began/occurred gradually. Modifying factors: The symptoms are alleviated by nothing, the symptoms are aggravated by nothing. Associated signs and symptoms: Pertinent positives: vaginal bleeding. Is a 20-year-old female with a history of anemia the presents emerged department with complaints of vaginal bleeding with a foul smell. Denies fever, vomiting. Patient's LMP was on 29 June. Patient is concerned she may be . Historical: - Allergies: 12:12 No Known Allergies; ww - Home Meds: 12:12 Zoloft Oral [Active]; ww - PMHx: 12:12 Anemia; ww - PSHx: 12:12 None; ww - Immunization history:: Adult Immunizations not up to date. - Social history:: Smoking status: Patient denies any tobacco usage or history of. ROS: 12:27 Constitutional: Negative for fever, chills, and weight loss, Cardiovascular: Negative jmm for chest pain, palpitations, and edema, Respiratory: Negative for shortness of breath, cough, wheezing, and pleuritic chest pain. 12:27 : Positive for vaginal bleeding. 12:27 All other systems are negative. Exam: 12:27 Constitutional: This is a well developed, well nourished patient who is awake, alert, jmm and in no acute distress. Head/Face: atraumatic. Eyes: EOMI, no conjunctival erythema appreciated ENT: Moist Mucus Membranes Neck: Trachea midline, Supple Chest/axilla: Normal chest wall appearance and motion. Cardiovascular: Regular rate and rhythm. No edema appreciated Respiratory: Normal respirations, no respiratory distress appreciated Abdomen/GI: Non distended, soft Back: Normal ROM Skin: General appearance color normal MS/ Extremity: Moves all extremities, no obvious deformities appreciated, no edema noted to the lower extremities Neuro: Awake and alert Psych: Behavior is normal, Mood is normal, Patient is cooperative and pleasant Vital Signs: 12:10 BP 121 / 89; Pulse 95; Resp 18; Temp 98.1; Pulse Ox 97% ; Weight 63.5 kg; Height 5 ft. ww 2 in. (157.48 cm); Pain 0/10; 12:10 Body Mass Index 25.61 (63.50 kg, 157.48 cm) ww MDM: 12:27 Patient medically screened. [facility] 20:19 Data reviewed: vital signs, nurses notes. ED course: Patient eloped from the ED prior jmm to final disposition. 07/11 12:43 Order name: Urine Dipstick-Ancillary; Complete Time: 12:44 EDMS 07/11 12:44 Order name: Urine --Ancillary (enter results); Complete Time: 13:36 bd 07/11 12:30 Order name: Urine Dipstick-Ancillary (obtain specimen); Complete Time: 12:43 [facility] 07/11 12:30 Order name: Urine Test (obtain specimen); Complete Time: 12:43 [facility] Administered Medications: No medications were administered Disposition Summary: 07/11/21 13:36 Eloped Disposition: post triage evaluation and consult ww Reason: wait time ww Signatures: Dispatcher [employer] EDMS Turner Ramos PA PA jmm Wood, Whitney, RN RN ww
== END 2021-07-11 13:36 | disposition left against medical advice (07) ==
LOC: ER 11:53
DX: N93.9 Abnormal uterine and vaginal bleeding, unspecified (principal); D64.9 Anemia, unspecified
CPT/HCPCS: 81003; 81025; 99281

== ENCOUNTER 2021-11-09 06:28 | Emergency (ER) | payer SELFPAY ==
--- OUTSIDE RECORDS SUMMARY | 2021-11-09 06:31 | XMS REPORT | Continuity of Care Document ---
:2000 Author Organization [facility] t Address [address] Siu [address] [place] [address] Care Team Providers Name Role Phone Shakeel Smith DO Attending Clinician Payers Payer Name Policy Type Policy Number Effective Date Expiration Date Jc RAMIREZ [id number] 1992 00:00:00 Problems Condition Condition Condition Status [...] and 03-28 ity of cramping cramping 00:00: [place] in early in early 00 Medica l Bran ch Family Family Disease Active Univers history of history of 2-01 it [place] of congenital [place] 00 [facility] Allergies, Adverse Reactions, Alerts Allergy Allergy Status Severity Reaction(s) Onset Inactive Treating Comm ents Source Name Type Date Date Clinician NO KNOWN Drug Active Univers ALLERGIE Class ity of S [facility] Social History Social Habit Start Date Stop Date Quantity Comments Source Exposure to Not sure [facility] SARS-CoV-2 [facility] (event) Branch Tobacco use and 2018-07-27 2018-07-27 Never used Universit y of exposure 00:00:00 00:00:00 [facility] Alcohol intake 2018-07-27 2018-07-27 Current University of 00:00:00 00:00:00 non-drinker of [facility] alcohol [place] (finding) Sex Assigned At [birth year] Universit y of 00:00:00 00:00:00 [facility] Smoking Status Start Date Stop Date Source Never smoker [facility] Medical [place] Medications Ordered Filled Start Stop Current Ordering Indication Dosage Frequency Signature Comments Components Source Medication Medication Date Date Medication? Clinician (SIG) Name Name albuterol Yes [id number] 2{puff} Inhale 2 Univers 90 5-10 Puffs ity of mcg/actuati 00:00: every 4 Rober as on inhaler 00 (four) Medical hours as Branch needed for Wheezing or Shortness of Breath. benzonatate Yes [id number] 100mg Take 1 Univers 100 mg 5-10 [...] y of Vaccine Quad IM 3+ 00:00:00 [facility] YRS Branch Vital Signs Vital Name Observation Time Observation Value Comments Source Systolic blood 2020-07-04 19:23:00 120 mm[Hg] Univer sity of pressure [facility] Diastolic blood 2020-07-04 19:23:00 79 mm[Hg] Unive rsity of pressure [facility] Heart rate 2020-07-04 19:23:00 86 /min Universi ty of [facility] Body temperature 2020-07-04 19:23:00 37.28 Parul [facility] Respiratory rate 2020-07-04 19:23:00 20 /min [facility] Body weight 2020-07-04 19:23:00 78.926 kg Universi [facility] Oxygen saturation in 2020-07-04 19:23:00 100 /min [facility] Arterial blood by [facility] Pulse oximetry Branch Procedures Procedure Date / Time Performed Performing Clinician Sour e ADC,CLC OR LCC ONLY - 2020-07-04 19:58:00 Shakeel Smith [facility] INFLUENZA A & B [facility] DIRECT ANTIGEN COVID-19 (ID NOW 2020-07-04 19:58:00 Shakeel Smith [facility] RAPID TESTING) [facility] NOTICE OF PRIVACY 2020-07-04 19:18:39 Doctor Unassigned, No [facility] Name Medical Branch CONSENT/REFUSAL FOR 2020-07-04 19:18:16 Doctor Unassigned, No [facility] DIAGNOSIS AND Name [facility] TREATMENT Encounters Start End Encounter Admission Attending Care Care Encounter Source Date/Time Date/Time Type Type Clinicians Facility Department ID 2020-12-25 Emergency [facility] [id number] Univers 18:10:57 ity of [facility] 2020-07-04 2020-07-04 Emergency Singer [facility] [id number] Univers 14:27:00 16:33:00 Shakeel Davison [id number] ty [facility] [id number] [facility] [id number] [facility] 084 Branch Results Test Description Test Time Test Comments Results Result Comments Source ADC,CLC OR LCC ONLY - INFLUENZA A & B DIRECT ANTIGEN 2020-06 20:41:10 Test Item Value Reference Range Interpretation Comme nts Influenza A (test code = 61184-5) Negative Negative Influenza B (test code = 69600-0) Negative Negative Lab Interpretation (test code = 17690-9) Normal [facility]APID TEST[facility])2020-07-04 20:38:26 Test Item Value Reference Range Interpretation Comments SARS-CoV-2 Rapid ID NOW Not Detected Not Detected (test code = 97134-6) ANU (test code = ANU) ID NOW COVID-19 Assay is an isothermal nucleic acid amplification test intended for the qualitative detection of nucleic acid from SARS-CoV-2 viral RNA in nasopharyngeal (INGREDIENT MIXER) specimens. It is used under Emergency Use [...] indicated. Lab Interpretation Normal (test code = 15177-7) [facility]
[2021-11-09 07:27] LABS: Urine Blood 1+ (Negative); Urine Glucose Negative (Negative); Urine Protein Negative (Negative); Urine pH 8.5 (5.0-7.0)
--- NOTE | 2021-11-09 07:33 | RAD REPORT ---
EXAM DESCRIPTION: Mariaa Single View11/09/2021 6:59 am CLINICAL HISTORY: Chest pain COMPARISON: none FINDINGS: The lungs appear clear of acute infiltrate. The heart is normal size IMPRESSION: No acute abnormalities displayed
[2021-11-09 07:45] LABS: Absolute Lymphocytes (CBC) 0.7 K/uL (0.7-4.9); Hematocrit 37.1 % (36.0-45.0); Lymphocytes % 5.6 % (15.3-44.8); MCV 92.8 fL (80-100); MPV 8.2 fL (7.6-11.3); RBC Red Blood Cell Count 3.99 M/uL (3.86-4.86)
[2021-11-09] MEDS ORDERED: IBUPROFEN 400 MG TAB ONE (07:45)
[2021-11-09] MEDS ORDERED: IBUPROFEN 200 MG TAB PO ONE (07:46)
[2021-11-09 07:53] LABS: Protime INR 1.1
[2021-11-09 07:57] LABS: Urine Mucus Slight /HPF (None Seen)
[2021-11-09 08:07] LABS: Albumin 3.7 g/dL (3.4-5.0); Bilirubin Total 0.8 mg/dL (0.2-1.0); Potassium 3.7 mmol/L (3.5-5.1); Protein, Total 6.9 g/dL (6.4-8.2)
[2021-11-09] MEDS ORDERED: KETOROLAC 30 MG/ML INJ ONE (08:12)
[2021-11-09] MEDS ORDERED: CEFTRIAXONE 2000 MG/VIAL ONE (08:12)
[2021-11-09] MEDS ORDERED: NA CHLORIDE 0.9% 100 ML ONE (08:13)
[2021-11-09] MEDS ORDERED: NA CHLORIDE 0.9% 2,000 ML ONE (08:13)
--- NOTE | 2021-11-09 08:48 | ER ---
Nurse's Notes [facility] Name: Eden Lott Age: 20 yrs Sex: Female : 2000 Arrival Date: 11/09/2021 Time: 06:29 Bed 8 Private MD: Diagnosis: Fever, unspecified;Acute tonsillitis, unspecified;Dehydration;Acute streptococcal tonsillitis, unspecified Presentation: 11/09 06:52 Chief complaint: Patient states: she started having a headache, sore throat, swollen bb tonsills, fever and back pain since last night. Coronavirus screen: fever, headache, muscle pain, Client presents with at least one sign or symptom that may indicate coronavirus-19. Ebola Screen: No symptoms or risks identified at this time. Initial Sepsis Screen: Does the patient meet any 2 criteria? No. Patient's initial sepsis screen is negative. Does the patient have a suspected source of infection? No. Patient's initial sepsis screen is negative. Risk Assessment: Do you want to hurt yourself or someone else? Patient reports no desire to harm self or others. Onset of symptoms was November 08, 2021. 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 - Social history:: Smoking status: Reported history of juuling and/or vaping. - Family history:: not pertinent. Screenin:05 Abuse screen: Denies threats or abuse. Nutritional screening: No deficits noted. aa5 Tuberculosis screening: No symptoms or risk factors identified. Fall Risk None identified. Assessment: 07:05 General: Appears uncomfortable, Behavior is calm, cooperative. Pain: Complains of pain aa5 in back Pain radiates to left leg Pain currently is 9 out of 10 on a pain scale. Quality of pain is described as sharp, shooting, Pain began 2-3 days ago. Is continuous. Neuro: Level of Consciousness is awake, alert, obeys commands, Oriented to person, place, time, situation. Cardiovascular: Heart tones S1 S2 present Rhythm is regular. Respiratory: Airway is patent Respiratory effort is even, unlabored, Respiratory pattern is regular, symmetrical, Breath sounds are clear bilaterally. GI: Abdomen is flat, non-distended, Bowel sounds present X 4 quads. Abd is soft and non tender X 4 quads. : Denies burning with urination, urinary frequency, urgency. EENT: Throat is reddened has enlarged tonsils. Derm: Skin is dry, Skin is normal, Skin temperature is warm. Musculoskeletal: Range of motion: intact in all extremities. 07:50 Reassessment: Pt resting in bed with eyes closed, respirations even and unlabored. . aa5 08:52 Reassessment: Awaiting NS bolus to finish before d/c home. Pt currently resting in bed aa5 with eyes closed, respirations even and unlabored, skin is normal/warm/dry. Pt easy to arouse to verbal stimuli. . 10:10 Reassessment: Patient states feeling better. Patient states symptoms have improved. aa5 Pain: Pain currently is 3 out of 10 on a pain scale. Neuro: Level of Consciousness is awake, alert, obeys commands, Oriented to person, place, time, situation. Respiratory: Airway is patent Respiratory effort is even, unlabored, Respiratory pattern is regular, symmetrical. Derm: Skin is dry, Skin is normal, Skin temperature is warm. Vital Signs: 06:52 BP 110 / 51; Pulse 108; Resp 18 S; Temp 99.6(O); Pulse Ox 98% on R/A; Weight 57.61 kg bb (R); Height 5 ft. 2 in. (157.48 cm) (R); Pain 9/10; 07:50 BP 108 / 60; Pulse 120; Resp 20 S; Temp 99.9(O); Pulse Ox 100% on R/A; aa5 08:52 BP 102 / 65; Pulse 100; Resp 16 S; Pulse Ox 100% on R/A; aa5 09:30 BP 110 / 62; Pulse 98; Resp 18 S; Temp 99.0(O); Pulse Ox 100% on R/A; aa5 06:52 Body Mass Index 23.23 (57.61 kg, 157.48 cm) Anderson Coma Score: 08:04 Eye Response: spontaneous(4). Verbal Response: oriented(5). Motor Response: obeys jamal commands(6). Total: 15. ED Course: 06:29 Patient arrived in ED. ja2 06:46 Setffen Hinkle MD is Attending Physician. kdr 06:54 Triage completed. bb 06:54 Arm band placed on Patient placed in an exam room, on a stretcher, on pulse oximetry. bb 07:00 Chest Single View XRAY In Process Unspecified. EDMS 07:05 Patient has correct armband on for positive identification. Bed in low position. Call aa5 light in reach. Side rails up X 1. Client placed on continuous cardiac and pulse oximetry monitoring. NIBP monitoring applied. 07:11 Felecia Barron, KEE is Primary Nurse. aa5 07:30 Inserted saline lock: 20 gauge in right antecubital area, using aseptic technique. aa5 Blood collected. 07:30 Initial lab(s) drawn, by me, sent to lab. First set of blood cultures drawn by me. aa5 07:45 Second set of blood cultures drawn by me. aa5 07:47 Attending Physician role handed off by Steffen Hinkle MD jamal 07:47 Mehrdad Walker MD is Attending Physician. jamal 08:47 Lisa Wall MD is Referral Physician. jamal 10:10 No provider procedures requiring assistance completed. IV discontinued, intact, aa5 bleeding controlled, No redness/swelling at site. Pressure dressing applied. Administered Medications: 07:17 Not Given (Pt reports she took tylenol 2 hrs ago): Acetaminophen 1000 mg PO once aa5 07:53 Drug: Ibuprofen 600 mg Route: PO; aa5 08:49 Follow up: Response: No adverse reaction aa5 08:13 Drug: NS 0.9% 1000 ml Route: IV; Rate: 1 bolus; Site: right antecubital; aa5 09:30 Follow up: IV Status: Completed infusion aa5 08:13 Drug: Rocephin (cefTRIAXone) 2 grams Route: IV; Rate: per protocol; Site: right aa5 antecubital; 08:20 Follow up: Response: No adverse reaction aa5 08:13 Drug: Ketorolac 30 mg Route: IVP; Site: right antecubital; aa5 08:20 Follow up: Response: No adverse reaction aa5 08:13 Drug: NS 0.9% 1000 ml Route: IV; Rate: 1 bolus; Site: right antecubital; aa5 09:30 Follow up: IV Status: Completed infusion aa5 09:30 Drug: Augmentin (Amoxicillin-Clavulanate) 875 mg Route: PO; aa5 10:10 Follow up: Response: No adverse reaction aa5 09:30 Drug: Decadron - Dexamethasone 10 mg Route: IVP; Site: right antecubital; aa5 10:10 Follow up: Response: No adverse reaction aa5 09:30 Drug: fentaNYL (PF) 25 mcg Route: IVP; Site: right antecubital; aa5 09:55 Follow up: Response: Marked relief of symptoms; Pain is decreased aa5 Medication: 10:10 VIS not applicable for this client. aa5 Outcome: 08:46 Discharge ordered by . jamal 10:10 Discharged to home ambulatory, with significant other. aa5 10:10 Condition: improved 10:10 Discharge instructions given to patient, Instructed on discharge instructions, follow up and referral plans. medication usage, Demonstrated understanding of instructions, follow-up care, medications, Prescriptions given X 2. 10:13 Patient left the ED. ph Signatures: Dispatcher [employer] EDMS Mehrdad Walker MD MD cha Rittger, Kevin, MD MD kdr Ballard, Brenda RN RN Felecia Cali RN RN Breana Moran RN RN Margi Alston Corrections: (The following items were deleted from the chart) 08:13 07:50 Pulse 120bpm; Resp 20bpm; Spontaneous; Temp 99.9F Oral; aa5 aa5
--- NOTE | 2021-11-09 08:48 | EDPHYS ---
Physician Documentation [facility] Name: Eden Lott Age: 20 yrs Sex: Female : 2000 Arrival Date: 11/09/2021 Time: 06:29 Bed 8 Private MD: ED Physician Mehrdad Walker HPI: 11/09 08:00 This 20 yrs old Black Female presents to ER via Ambulatory with complaints of Headache, jamal Back Pain, Sore Throat, Fever. 08:00 The patient complains of pain to the top of head, forehead, left frontal area, left jamal side of the back of head, left occipital area, right frontal area, right side of the back of head and right occipital area. The patient describes the headache as constant. 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 - Social history:: Smoking status: Reported history of juuling and/or vaping. - Family history:: not pertinent. ROS: 08:01 Eyes: Negative for injury, pain, redness, and discharge, Neck: Negative for injury, jamal pain, and swelling, Cardiovascular: Negative for chest pain, palpitations, and edema, Respiratory: Negative for shortness of breath, cough, wheezing, and pleuritic chest pain, Abdomen/GI: Negative for abdominal pain, nausea, vomiting, diarrhea, and constipation, : Negative for injury, bleeding, discharge, and swelling, MS/Extremity: Negative for injury and deformity, Skin: Negative for injury, rash, and discoloration, Neuro: Negative for headache, weakness, numbness, tingling, and seizure. 08:01 Constitutional: Positive for chills, fever, malaise. 08:01 ENT: Positive for rhinorrhea, sinus congestion, sore throat. 08:01 Cardiovascular: Positive for palpitations. 08:01 Respiratory: Positive for cough. 08:01 Abdomen/GI: Negative for abdominal pain. 08:01 MS/extremity: Negative for acute changes. Exam: 08:01 Constitutional: This is a well developed, well nourished patient who is awake, alert, jamal and in no acute distress. Head/Face: Normocephalic, atraumatic. Eyes: Pupils equal round and reactive to light, extra-ocular motions intact. Lids and lashes normal. Conjunctiva and sclera are non-icteric and not injected. Cornea within normal limits. Periorbital areas with no swelling, redness, or edema. Neck: Trachea midline, no thyromegaly or masses palpated, and no cervical lymphadenopathy. Supple, full range of motion without nuchal rigidity, or vertebral point tenderness. No Meningismus. Chest/axilla: Normal chest wall appearance and motion. Nontender with no deformity. No lesions are appreciated. Respiratory: Lungs have equal breath sounds bilaterally, clear to auscultation and percussion. No rales, rhonchi or wheezes noted. No increased work of breathing, no retractions or nasal flaring. Abdomen/GI: Soft, non-tender, with normal bowel sounds. No distension or tympany. No guarding or rebound. No evidence of tenderness throughout. Back: No spinal tenderness. No costovertebral tenderness. Full range of motion. Skin: Warm, dry with normal turgor. Normal color with no rashes, no lesions, and no evidence of cellulitis. MS/ Extremity: Pulses equal, no cyanosis. Neurovascular intact. Full, normal range of motion. Neuro: Awake and alert, GCS 15, oriented to person, place, time, and situation. Cranial nerves II-XII grossly intact. Motor strength 5/5 in all extremities. Sensory grossly intact. Cerebellar exam normal. Normal gait. Psych: Awake, alert, with orientation to person, place and time. Behavior, mood, and affect are within normal limits. 08:01 ENT: Posterior pharynx: Airway: Tonsils: bilaterally enlarged, with erythema, Uvula: edematous, erythema, swelling, that is mild, erythema, that is mild, exudate, that is mild. 08:01 Cardiovascular: Rate: tachycardic, actual rate is 120 bpm, Rhythm: regular, Pulses: Pulses are 4+ in bilateral radial, brachial, femoral, popliteal, posterior tibial and and dorsalis pedis arteries.. Heart sounds: normal, Edema: is not appreciated, JVD: is not appreciated. Vital Signs: 06:52 BP 110 / 51; Pulse 108; Resp 18 S; Temp 99.6(O); Pulse Ox 98% on R/A; Weight 57.61 kg bb (R); Height 5 ft. 2 in. (157.48 cm) (R); Pain 9/10; 07:50 BP 108 / 60; Pulse 120; Resp 20 S; Temp 99.9(O); Pulse Ox 100% on R/A; aa5 08:52 BP 102 / 65; Pulse 100; Resp 16 S; Pulse Ox 100% on R/A; aa5 09:30 BP 110 / 62; Pulse 98; Resp 18 S; Temp 99.0(O); Pulse Ox 100% on R/A; aa5 06:52 Body Mass Index 23.23 (57.61 kg, 157.48 cm) bb Anderson Coma Score: 08:04 Eye Response: spontaneous(4). Verbal Response: oriented(5). Motor Response: obeys jamal commands(6). Total: 15. MDM: 07:47 Patient medically screened. jamal 08:04 Differential diagnosis: viral Infection, bacterial infection, URI, pneumonia migraine, jamal sinusitis, group A strep tonsillitis, influenza, laryngitis, neisseria gonorrheoeae pharangitis, pharyngitis, tonsillitis, upper respiratory infection, uvulitis, viral syndrome. Differential Diagnosis sepsis, flu. Data reviewed: vital signs, nurses notes, lab test result(s), radiologic studies. Data interpreted: legal research analyst: rate is 120 beats/min, rhythm is regular. Test interpretation: by ED physician or midlevel provider: plain radiologic studies. Counseling: I had a detailed discussion with the patient and/or guardian regarding: the historical points, exam findings, and any diagnostic results supporting the discharge/admit diagnosis, lab results, radiology results, the need for outpatient follow up, for definitive care, a family practitioner. 11/09 06:48 Order name: CBC with Diff; Complete Time: 07:49 kdr 11/09 06:48 Order name: Blood Culture Adult (2) kdr 11/09 06:48 Order name: CMP; Complete Time: 08:45 kdr 11/09 06:48 Order name: Lactate; Complete Time: 08:45 kdr 11/09 06:48 Order name: Protime (+inr); Complete Time: 07:56 kdr 11/09 06:48 Order name: Ptt, Activated; Complete Time: 07:56 kdr 11/09 06:48 Order name: Urine Culture kdr 11/09 06:48 Order name: Urine Microscopic Only; Complete Time: 08:45 kdr 11/09 06:48 Order name: Chest Single View XRAY; Complete Time: 07:42 kdr 11/09 07:28 Order name: Urine Dipstick-Ancillary; Complete Time: 07:42 EDMS 11/09 07:29 Order name: Urine --Ancillary (enter results) eb 11/09 07:54 Order name: Strep; Complete Time: 08:45 aa5 11/09 07:54 Order name: Flu; Complete Time: 08:45 aa5 11/09 07:54 Order name: SARS-COV-2 RT PCR (Document "Date of Onset" if Symptomatic); Complete Time: aa5 09:07 11/09 06:48 Order name: Cardiac monitoring; Complete Time: 07:53 kdr 11/09 06:48 Order name: EKG - Nurse/Tech; Complete Time: 07:53 kdr 11/09 06:48 Order name: IV Saline Lock - Large Bore; Complete Time: 07:53 kdr 11/09 06:48 Order name: Labs collected and sent; Complete Time: 07:53 kdr 11/09 06:48 Order name: O2 Per Protocol; Complete Time: 07:53 kdr 11/09 06:48 Order name: O2 Sat Monitoring; Complete Time: 07:53 kdr 11/09 06:48 Order name: Urine Dipstick-Ancillary (obtain specimen); Complete Time: 07:54 kdr 11/09 06:48 Order name: Urine Test (obtain specimen); Complete Time: 07:54 kdr Administered Medications: 07:17 Not Given (Pt reports she took tylenol 2 hrs ago): Acetaminophen 1000 mg PO once aa5 07:53 Drug: Ibuprofen 600 mg Route: PO; aa5 08:49 Follow up: Response: No adverse reaction aa5 08:13 Drug: NS 0.9% 1000 ml Route: IV; Rate: 1 bolus; Site: right antecubital; aa5 09:30 Follow up: IV Status: Completed infusion aa5 08:13 Drug: Rocephin (cefTRIAXone) 2 grams Route: IV; Rate: per protocol; Site: right aa5 antecubital; 08:20 Follow up: Response: No adverse reaction aa5 08:13 Drug: Ketorolac 30 mg Route: IVP; Site: right antecubital; aa5 08:20 Follow up: Response: No adverse reaction aa5 08:13 Drug: NS 0.9% 1000 ml Route: IV; Rate: 1 bolus; Site: right antecubital; aa5 09:30 Follow up: IV Status: Completed infusion aa5 09:30 Drug: Augmentin (Amoxicillin-Clavulanate) 875 mg Route: PO; aa5 10:10 Follow up: Response: No adverse reaction aa5 09:30 Drug: Decadron - Dexamethasone 10 mg Route: IVP; Site: right antecubital; aa5 10:10 Follow up: Response: No adverse reaction aa5 09:30 Drug: fentaNYL (PF) 25 mcg Route: IVP; Site: right antecubital; aa5 09:55 Follow up: Response: Marked relief of symptoms; Pain is decreased aa5 Disposition Summary: 11/09/21 08:46 Discharge Ordered Location: Home jamal Problem: [facility] Symptoms: have improved jamal Condition: Stable jamal Diagnosis - Fever, unspecified jamal - Acute tonsillitis, unspecified jamal - Dehydration jamal - Acute streptococcal tonsillitis, unspecified jamal Followup: jamal - With: Private Physician - When: 2 - 3 days - Reason: Recheck today's complaints, Continuance of care, Re-evaluation by your physician Followup: jamal - With: Lisa Wall MD - When: 2 - 3 days - Reason: Recheck today's complaints, Re-evaluation by your physician Discharge Instructions: - Discharge Summary Sheet jamal - Dehydration, Adult jamal - Fever, Adult jamal - Tonsillitis jamal - Upper Respiratory Infection, Adult jamal - Strep Throat, Adult jamal - Tonsillitis, [id number] [facility] Forms: - Medication Reconciliation Form [facility] - Thank You Letter jamal - Antibiotic Education [facility] - Prescription Opioid Use [facility] Prescriptions: - Augmentin 875-125 mg Oral Tablet - take 1 tablet by ORAL route every 12 hours for 10 days; 20 tablet; Refills: 0, jamal Product Selection Permitted - Zofran 4 mg Oral Tablet - take 1 tablet by ORAL route every 12 hours As needed; 20 tablet; Refills: 0, [facility] Product Selection Permitted Signatures: Dispatcher [employer] Mehrdad Brown MD MD cha Rittger, Kevin, MD MD kdr Ayala, Joycelyn, RN RN bb Felecia Barron RN RN aa5 Corrections: (The following items were deleted from the chart) 07:54 06:48 Brandi tripp. lolly aa5
[2021-11-09] MEDS ORDERED: AMOX/K CLAV 875 MG TAB ONE (09:15)
[2021-11-09] MEDS ORDERED: FENTANYL CITR 100 MCG/2 ML ONE (09:15)
[2021-11-09] MEDS ORDERED: dexAMETHasone 10 MG/ML VIAL ONE (09:16)
[2021-11-10 12:43] VITALS: BP 110/51; TEMP 99.6; O2SAT 98
== END 2021-11-09 10:13 | disposition home or self-care (01) ==
LOC: ER 06:28
DX: J03.00 Acute streptococcal tonsillitis, unspecified (principal); E86.0 Dehydration; Z20.822 Contact with and (suspected) exposure to COVID-19
CPT/HCPCS: 36415; 71045; 80053; 81003; 81015; 81025; 83605; 85025; 85610; 85730; 87040; 87081; 87086; 87088; 87804; 93005; 96361; 96374; 96375; 99284; J0696; J1100; J3010; J7030; U0003

== ENCOUNTER 2023-02-06 17:31 | Emergency (ER) | payer SELFPAY ==
--- NOTE | 2023-02-06 17:44 | EDPHYS ---
Physician Documentation [facility] Name: Eden Lott Age: 22 yrs Sex: Female : 2000 Arrival Date: 02/06/2023 Time: 17:31 Bed Waiting Private MD: ED Physician Mehrdad Walker HPI: 02/06 18:14 This 22 yrs old Black Female presents to ER via Ambulatory with complaints of Eye Pain kb - -both eyes, Eye Swelling - -Both eyes, Eye itch- both eyes. 18:14 Patient is a 22-year-old female who reports swelling to eyelids, itching to the eyes kb and discharge with crusting in the mornings for the last 4 days to both eyes. Denies fever, cough, congestion, visual disturbances. Historical: - Allergies: 17:43 No Known Allergies; cm10 - PMHx: 17:43 Anemia; cm10 - Immunization history:: Adult Immunizations unknown. - Social history:: Smoking status: Reported history of juuling and/or vaping. ROS: 18:13 Constitutional: Negative for fever, chills, and weight loss, kb 18:13 Eyes: Positive for discharge, itching, redness, swelling, 18:13 All other systems are negative, Exam: 18:13 Constitutional: This is a well developed, well nourished patient who is awake, alert, kb and in no acute distress. Head/Face: Normocephalic, atraumatic. Cardiovascular: Regular rate Respiratory: Respirations even and unlabored. No increased work of breathing. Talking in full sentences Skin: Warm, dry with normal turgor. Normal color. MS/ Extremity: Pulses equal, no cyanosis. Neurovascular intact. Full, normal range of motion. Neuro: Awake and alert, GCS 15, oriented to person, place, time, and situation. Moves all extremities. Normal gait. 18:13 Eyes: Periorbital structures: swelling, that is mild, bilaterally, lower eyelids, Pupils: equal, round, and reactive to light and accomodation, Extraocular movements: intact throughout, Conjunctiva: injected, bilaterally, Vital Signs: 17:41 BP 119 / 87; Pulse 85; Resp 18; Temp 97.4; Pulse Ox 99% on R/A; cm10 MDM: 17:40 Patient medically screened. kb 18:14 Differential diagnosis: Corneal abrasion of Corneal ulcer of Foreign body in Acute kb iritis of Data reviewed: vital signs, nurses notes. Counseling: I had a detailed discussion with the patient and/or guardian regarding the historical points, exam findings, and any diagnostic results supporting the discharge/admit diagnosis, the need for outpatient follow up, an opthalmologist, to return to the emergency department if symptoms worsen or persist or if there are any questions or concerns that arise at home. Administered Medications: No medications were administered Disposition Summary: 02/06/23 17:43 Discharge Ordered Notes: Location: Home kb Condition: Stable kb Diagnosis - Unspecified acute conjunctivitis, bilateral kb Followup: kb - With: Emergency Department - When: As needed - Reason: Worsening of condition Followup: kb - With: Private Physician - When: 2 - 3 days - Reason: Recheck today's complaints, Continuance of care, Re-evaluation by your physician Discharge Instructions: - Discharge Summary Sheet kb - Bacterial Conjunctivitis, Adult, [id number] kb Forms: - Medication Reconciliation Form kb - Thank You Letter kb - Antibiotic Education kb - Prescription Opioid Use kb - Patient Portal Instructions kb - Leadership Thank You Letter kb Prescriptions: - Vigamox 0.5 % Ophthalmic Drops - instill 1 drop OPHTHALMIC route every 8 hours for 7 days; 5 milliliter; kb Refills: 0, Product Selection Permitted Signatures: Yanira Pina FNP-C FNP-Carolyn Juarez, RN RN cm10
--- NOTE | 2023-02-06 17:44 | ER ---
Nurse's Notes [facility] Name: Eden Lott Age: 22 yrs Sex: Female : 2000 Arrival Date: 02/06/2023 Time: 17:31 Bed Waiting Private MD: Diagnosis: Unspecified acute conjunctivitis, bilateral Presentation: 02/06 17:41 Chief complaint: Patient states: eye swelling and itching onset 4 days ago. Pt states cm10 that it is both eyes but the left eye got better. Ebola Screen: Patient denies travel to an Ebola-affected area in the 21 days before illness onset. No symptoms or risks identified at this time. 17:41 Method Of Arrival: Ambulatory cm10 17:42 Coronavirus screen: Vaccine status: Patient reports being unvaccinated. Client denies cm10 travel out of the [place] in the last 14 days. Initial Sepsis Screen: Does the patient meet any 2 criteria? No. Patient's initial sepsis screen is negative. Does the patient have a suspected source of infection? No. Patient's initial sepsis screen is negative. Risk Assessment: Do you want to hurt yourself or someone else? Patient reports no desire to harm self or others. Onset of symptoms was February 06, 2023. 17:42 Acuity: ERIKA 4 cm10 Triage Assessment: 17:43 General: Appears in no apparent distress. comfortable, Behavior is calm, cooperative. cm10 Pain: Complains of pain in right eye and left eye. EENT:. EENT: Reports pain in right eye and left eye. Neuro: No deficits noted. Level of Consciousness is awake, alert, obeys commands, Oriented to person, place, time, situation. Cardiovascular: No deficits noted. Patient's skin is warm and dry. Respiratory: No deficits noted. Airway is patent Respiratory effort is even, unlabored, Respiratory pattern is regular, symmetrical. GI: No deficits noted. No signs and/or symptoms were reported involving the gastrointestinal system. : No deficits noted. No signs and/or symptoms were reported regarding the genitourinary system. Derm: No deficits noted. No signs and/or symptoms reported regarding the dermatologic system. Skin is intact, Skin is pink, warm \T\ dry. Musculoskeletal: No deficits noted. Range of motion: intact in all extremities. Historical: - Allergies: 17:43 No Known Allergies; cm10 - PMHx: 17:43 Anemia; cm10 - Immunization history:: Adult Immunizations unknown. - Social history:: Smoking status: Reported history of juuling and/or vaping. Screenin:44 [facility] ED Fall Risk Assessment (Adult) History of falling in the last 3 months, cm10 including since admission No falls in past 3 months (0 pts) Confusion or Disorientation No (0 pts) Intoxicated or Sedated No (0 pts) Impaired Gait No (0 pts) Mobility Assist Device Used No (0 pt) Altered Elimination No (0 pt) Score/Fall Risk Level 0 - 2 = Low Risk Oriented to surroundings, Maintained a safe environment, Hourly rounding (assess needs \T\ fall precautionary measures) done. Abuse screen: Denies threats or abuse. Denies injuries from another. Nutritional screening: No deficits noted. Tuberculosis screening: No symptoms or risk factors identified. Vital Signs: 17:41 BP 119 / 87; Pulse 85; Resp 18; Temp 97.4; Pulse Ox 99% on R/A; cm10 ED Course: 17:35 Patient arrived in ED. im 17:38 Yanira Pina FNP-C is [facility]. kb 17:38 Mehrdad Walker MD is Attending Physician. kb 17:43 Triage completed. cm10 17:43 Arm band placed on Patient placed in an exam room, on a stretcher. cm10 17:44 Patient has correct armband on for positive identification. Provided Education on: ER cm10 process and procedures. . Cardiac monitoring not applicable on this patient. 17:45 No provider procedures requiring assistance completed. Patient did not have IV access cm10 during this emergency room visit. Administered Medications: No medications were administered Medication: 17:44 VIS not applicable for this client. cm10 Outcome: 17:43 Discharge ordered by . kb 17:45 Discharged to home ambulatory, cm10 17:45 Condition: good 17:45 Discharge instructions given to patient, Instructed on discharge instructions, follow up and referral plans. medication usage, Demonstrated understanding of instructions, follow-up care, medications, Prescriptions given X 1, 17:45 Patient left the ED. cm10 Signatures: Yanira Pina FNP-C FNP-Liz Keller Clarissa, RN RN cm10
[2023-02-06 20:31] VITALS: BP 119/87; TEMP 97.4; O2SAT 99
== END 2023-02-06 17:45 | disposition home or self-care (01) ==
LOC: ER 17:31
DX: H10.33 Unspecified acute conjunctivitis, bilateral (principal)

== ENCOUNTER → 2023-04-11 | Emergency (ER) | payer SELFPAY ==
--- OUTSIDE RECORDS SUMMARY | 2023-04-11 17:43 | XMS REPORT | Continuity of Care Document ---
Author Name Unknown Address [address] [place] [address] [facility] thconnect Address [address] [place] [address] Care Team Providers Care External Relations Manager Name Role Phone PCP, PATIENT DOES NOT HAVE A Primary Care Physic gilbertoLORRIE Sol Attending Clinician Unavail Christiana Castro RN Attending Clinician Unavailabl e Doctor Unassigned, [place] Attending Clinician U Shakeel Schwartz DO Attending Clinician [phone] Payers Payer Name Policy Type Policy Number Effective Date Expirati on Date Source [facility] [id number] 1992 00:00:00 MEDICAID PENDING PENDING 2023 00:00:00 Problems Condition Name Condition Details Condition Category Status Onset Date Resolution Date Last Treatment Date Treating Clinician Comments Source Rubella non-immune status, antepartum Rubella non-immune status, antepartum Disease Active 03-29 00:00: 00 [facility] Susceptibl e to varicella (non-immun e), currently Susceptibl e to varicella (non-immun e), currently Disease Active 03-29 00:00: 00 Overview: Formattin g of this note might be different from the original. Address pp [facility] High risk , antepartum High risk , antepartum Disease Active 03-28 00:00: 00 [facility] History of hemorrhage , currently History of hemorrhage , currently Disease Active 03-28 00:00: 00 [facility] History of depression History of depression Disease Active 03-28 00:00: 00 [facility] Obesity in , antepartum Obesity in , antepartum Disease Active 03-28 00:00: 00 [facility] Bloody show and cramping in early Bloody show and cramping in early Disease Active 03-28 00:00: 00 [facility] Family history of congenital anomalies Family history of congenital anomalies Disease Active 03-28 00:00: 00 [facility] Allergies, Adverse Reactions, Alerts Allergy Name Allergy Type Status Severity Reaction(s) Onset Date Inactive Date Treating Clinician Comments Source NO KNOWN ALLERGIE S Drug Class Active [facility] Social History Social Habit Start Date Stop Date Quantity Comments Source Exposure to SARS-CoV-2 (event) Not sure [facility] of Social function 2018-11-18 00:00:00 2018-11-18 00:00:00 [facility] Alcohol intake 2018-07-27 00:00:00 2018-07-27 00:00:00 Current non-drinker of alcohol (finding) [facility] Tobacco use and exposure 2017-03-28 00:00:00 2017-03-28 00:00:00 Smokeless tobacco non-user [facility] Sex Assigned At 2000 00:00:00 2000 00:00:00 [facility] Smoking Status Start Date Stop Date Source Never smoked tobacco [facility] Medications Ordered Medication Name Filled Medication Name Start Date Stop Date Current Medication? Ordering Clinician Indication Dosage Frequency Signature (SIG) Comments Components Source albuterol 90 mcg/actuati on inhaler 5-10 00:00: 00 Yes [id number] 2{puff} Inhale 2 Puffs every 4 (four) hours as needed for Wheezing or Shortness of Breath. [facility] benzonatate 100 mg capsule 07-04 00:00: 00 Yes [id number] 100mg Take 1 capsule by mouth 3 (three) times daily as needed for Cough. [facility] albuterol 90 mcg/actuati on inhaler 07-04 00:00: 00 Yes [id number] 2{puff} Inhale 2 Puffs every 4 (four) hours as needed for Wheezing or Shortness of Breath. [facility] benzonatate 100 mg capsule 07-04 00:00: 00 Yes [id number] 100mg Take 1 capsule by mouth 3 (three) times daily as needed for Cough. [facility] albuterol 90 mcg/actuati on inhaler 07-04 00:00: 00 Yes [id number] 2{puff} Inhale 2 Puffs every 4 (four) hours as needed for Wheezing or Shortness of Breath. [facility] benzonatate 100 mg capsule 07-04 00:00: 00 Yes [id number] 100mg Take 1 capsule by mouth 3 (three) times daily as needed for Cough. [facility] VIT CALC,IRON,F OLIC ( VITAMIN ORAL) 03-28 14:42: 29 Yes 1{tbl} Take 1 tablet by mouth daily. [facility] VIT CALC,IRON,F OLIC ( VITAMIN ORAL) 03-28 08:42: 29 Yes 1{tbl} Take 1 tablet by mouth daily. [facility] VIT CALC,IRON,F OLIC ( VITAMIN ORAL) 03-28 08:42: 29 Yes 1{tbl} Take 1 tablet by mouth daily. [facility] PNV 67-iron ps-folate no.1-dha (VITAFOL ULTRA) 29 mg iron- 1 mg-200 mg Cap 03-28 00:00: 00 Yes 1{tbl} Take 1 tablet by mouth daily. [facility] PNV 67-iron ps-folate no.1-dha (VITAFOL ULTRA) 29 mg iron- 1 mg-200 mg Cap 03-28 00:00: 00 Yes 1{tbl} Take 1 tablet by mouth daily. [facility] PNV 67-iron ps-folate no.1-dha (VITAFOL ULTRA) 29 mg iron- 1 mg-200 mg Cap 03-28 00:00: 00 Yes 1{tbl} Take 1 tablet by mouth daily. [facility] Immunizations Ordered Immunization Name Filled Immunization Name Date Status Comments Source Influenza Virus Vaccine Quad IM 3+ YRS 2017-03-28 00:00:00 Completed [facility] Influenza Virus Vaccine Quad IM 3+ YRS Unknown Completed [facility] Influenza Virus Vaccine Quad IM 3+ YRS Unknown Completed [facility] Vital Signs Vital Name Observation Time Observation Value Comments S ource Systolic blood pressure 2020-07-04 19:23:00 120 mm[Hg] [facility] Diastolic blood pressure 2020-07-04 19:23:00 79 mm[Hg] [facility] Heart rate 2020-07-04 19:23:00 86 /min [facility] Body temperature 2020-07-04 19:23:00 37.28 Parul [facility] Respiratory rate 2020-07-04 19:23:00 20 /min [facility] Body weight 2020-07-04 19:23:00 78.926 kg [facility] Oxygen saturation in Arterial blood by Pulse oximetry 2020-07-04 19:23:00 100 /min [facility] Procedures Procedure Date / Time Performed Performing Clinicia n Source ASSIGNMENT OF BENEFITS 2023-03-19 18:20:29 Docto r Unassigned, [facility] ADC,CLC OR LCC ONLY - INFLUENZA A & B DIRECT ANTIGEN 2020-07-04 19:58:00 Shakeel Smith [facility] COVID-19 (ID NOW RAPID TESTING) 2020-07-04 19:58:00 Shakeel Smith [facility] NOTICE OF PRIVACY PRACTICES 2020-07-04 19:18:39 Doctor Unassigned, [facility] CONSENT/REFUSAL FOR DIAGNOSIS AND TREATMENT 2020-07-04 19:18:16 Doctor Unassigned, [facility] Encounters Start Date/Time End Date/Time Encounter Type Admission Type Attending Clinicians Care Facility Care Department Encounter ID Source 2020-12-25 18:10:57 Emergency [facility] [id number] [facility] 2023-03-22 13:45:00 2023-03-22 13:45:00 Outpatient LORRIE PEDRO [facility] [id number] [facility] 2023-03-19 12:30:00 2023-03-19 12:30:00 Outpatient LORRIE PEDRO [facility] [id number] [facility] 2023-03-19 00:00:00 2023-03-19 00:00:00 Nurse Triage Christiana Sommers [facility] [id number] [facility] 2023-03-19 00:00:00 2023-03-19 00:00:00 Orders Only Doctor Unassigned, [place] [facility] [id number] [id number] [facility] 2020-07-04 14:27:00 2020-07-04 16:33:00 Emergency SmithShakeel [facility] [id number] [facility] Results Test Description Test Time Test Comments Results Result Co mments [facility]2020-07-04 20:38:26* Test Item Value Reference Range Interpretation Comme nts SARS-CoV-2 Rapid ID NOW (test code = 00869-9) Not Detected Not Detected ANU (test code = ANU) ID NOW COVID-19 As say is an isothermal nucleic acid amplification test intended for the qualitative detection of nucleic acid from SARS-CoV-2 viral RNA in nasopharyngeal (RESIDENTIAL SERVICE TECHNICIAN) specimens. It is used under Emergency Use [...] patient testing if clinically indicated. 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 -----Eden Lott is a 22 year old female [id number] encounter ShaxHR6218-15-77J36:01:27Telephone encounter [id number] .[id number] for patient nubw15233-7RwcdJLLCPKIYXBYBsebadbs d C-CDA narrative [id number] Cabello RNUTMBUTMB - [address] Rz[id number] 39MXHXOIZBULXNWYKPNTBYPB5370-68-45 T09:01:271.2.840.578524.1.72.3.15| [id number] Christiana Sommers RN [facility] 2023-03-19 09:01:00 zX8udXGGqK3eAgaZHjFh tw+PdBgmsYwAA0 /4LfH9akS7nfQXRflJQGB/QAxDp0nD3930 -01-23T09:01:00 Triage AssessmentLast Clinic Visit: 07/04/20, ER, coughPrimary Symptom: vaginal bleedingOnset / Duration: todayLocation / Description: vaginalPain / Severity: ssociated Symptoms: pale in color, passed 1 clotFever / Method: deniesHydration: eating and drinking less, 16.9oz of water, last void 15 min ago, denies dysuria, has nausea, denies v/dTreatment so far: Tylenol 650mg 0800Effect on ADL's: someGestational Weeks: unknown, + test 03/01/23Rupture Membranes: deniesBleeding / Spotting / Pads per hour: 1 padFetal Movement: NAPara / : EDC: NAPre-existing condition / Immunocompromised: anemia, breast disorder, depression, severe depressionLansean Lott is a 22 year old female whose calling for advice with vaginal bleeding. Pt reports had a positive test on 03/01/23. Pt reports yesterday she started spotting. Pt reports today the bleeding has increased. Pt reports she has used 1 panty liner total today. Pt reports intermittent cramping. Pt reports blood is dark in color and passed 1 clot today. Pt reports she looks pale and has a hx of anemia. Assessment and triage completed per protocol. Patient verbalizes understanding and agrees to follow plan of care. Pt verbalized understanding of need for ER eval within 1 hr. Pt reports will go to [facility] within 1 hr. Pt had no further questions or concerns. Call back advice given and pt verbalized understanding.Christiana Sommers RNReason for DispositionPale skin (pallor) of new onset or worseningProtocols used: - Vaginal Bleeding Less Than 20 Weeks CUY-IVZIE-LIUhbwjxsxqjheeo signed by Christiana Sommers RN at 03/19/2023 9:16 AM [id number] encounter XgpxJH8035-47-18S58:16:23Telephone encounter [id number] .[id number] for patient xlzl08721-1FoqcURZLSHACFXTEpxbprcj garrett C-CDA narrative textUT50 Clark StreetRn[id number] 70PHHPKPCNTFTJAOWKSPPCKP4153-67-95 T09:16:231.2.840.522680.1.72.3.15| [id number] [facility]"
--- NOTE | 2023-04-11 18:30 | RAD REPORT ---
EXAM DESCRIPTION: CT - Head Brain Wo Cont - 04/11/2023 6:10 pm CLINICAL HISTORY: Pain;Trauma COMPARISON: No comparisons TECHNIQUE: All CT scans are performed using dose optimization technique as appropriate and may inclu de automated exposure control or mA/KV adjustment according to patient size. FINDINGS: No intracranial hemorrhage, hydrocephalus or extra-axial fluid collection.No areas of brai n edema or evidence of midline shift. The paranasal sinuses and mastoids are clear. The calvarium is intact. IMPRESSION: No acute intracranial abnormality.
--- NOTE | 2023-04-11 18:32 | RAD REPORT ---
EXAM DESCRIPTION: RAD - Hand Left 3 View - 04/11/2023 6:14 pm CLINICAL HISTORY: PAIN COMPARISON: No comparisons FINDINGS: No bone or joint abnormality detected.
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
[2023-04-11 20:18] VITALS: BP 135/86; TEMP 98; O2SAT 99
== END ==
LOC: ER 17:39
DX: S60.222A Contusion of left hand, initial encounter (principal)
CPT/HCPCS: 70450; 99282

== ENCOUNTER 2024-02-11 08:38 | Emergency (ER) | payer SELFPAY ==
[2024-02-11] MEDS ORDERED: HYDROCODONE/APAP 5/325 MG TAB ONE (08:58)
--- NOTE | 2024-02-11 09:48 | RAD REPORT ---
EXAM: XR RIGHT HAND HISTORY: Pain. trauma;Pain COMPARISON: None TECHNIQUE: Multiple projections of the right hand submitted. FINDINGS: Soft tissue swelling noted affecting the second finger.. No acute fracture or dislocation s een.
--- NOTE | 2024-02-11 10:08 | EDPHYS ---
Physician Documentation [facility] Name: Eden Lott Age: 23 yrs Sex: Female : 2000 Arrival Date: 02/11/2024 Time: 08:38 Bed 8 Private MD: ED Physician Jarret Cantrell HPI: 02/10 09:59 This 23 yrs old Black Female presents to ER via Ambulatory with complaints of Hand ms3 Injury. 09:59 Eden Lott, a 23-year-old female, presents to the emergency department with a ms3 hand injury sustained last night around 6 PM. She reports that she smashed her hand under the garage door and was unable to pull out of the bottom, leading her to yank her hand out. Since then, she experiences severe discomfort, rating it a 10 out of 10 on the pain scale. She reports not being able to move her middle finger and has decreased sensation in the area. The pain worsens with movement, and no relief measures have been effective thus far.. 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 - Infectious Disease History:: Denies. - Social history:: Smoking status: Reported history of juuling and/or vaping. ROS: 09:59 Constitutional: Negative for fever, and chills. Cardiovascular: Negative for chest ms3 pain, and palpitations. Respiratory: Negative for shortness of breath, cough, wheezing, and pleuritic chest pain, Abdomen/GI: Negative for abdominal pain, nausea, vomiting, diarrhea, and constipation, 09:59 MS/extremity: Positive for injury or acute deformity, pain, Exam: 09:59 Constitutional: This is a well developed, well nourished patient who is awake, alert, ms3 and in no acute distress. Chest/axilla: Normal chest wall appearance and motion. Nontender with no deformity. Cardiovascular: Regular rate and rhythm with a normal S1 and S2. No gallops, murmurs, or rubs. Normal PMI, no JVD. No pulse deficits. Respiratory: Lungs have equal breath sounds bilaterally, clear to auscultation and percussion. No rales, rhonchi or wheezes noted. No increased work of breathing, no retractions or nasal flaring. Abdomen/GI: Soft, non-tender, with normal bowel sounds. No distension or tympany. No guarding or rebound. No evidence of tenderness throughout. 09:59 Musculoskeletal/extremity: 2nd - 5th fingers with TTP entire length of finger. Right hand TTP. Mild swelling. No ecchymosis . Vital Signs: 08:53 Resp 14; Weight 63.05 kg; Height 5 ft. 1 in. ; Pain 10/10; ss 08:56 BP 126 / 95; Pulse 99; Resp 18; Temp 97.8; Pulse Ox 100% ; ko1 10:20 BP 124 / 78; Pulse 87; Resp 15; Pulse Ox 99% ; ko1 08:53 Body Mass Index 26.26 (63.05 kg, 154.94 cm) ss 08:53 Pain Scale: Adult ss MDM: 08:55 Medical Screening Exam initiated ms3 09:59 Differential diagnosis: dislocation, closed fracture, contusion. Data reviewed: vital ms3 signs, nurses notes, radiologic studies, plain films, and as a result, I will discharge patient. I considered the following discharge prescriptions or medication management in the emergency department Medications were administered in the Emergency Department. See MAR. Independent interpretation of the following test(s) in the Emergency Department X-Ray: My interpretation is Right hand x-ray images reviewed by me do not reveal fracture. Counseling: I had a detailed discussion with the patient and/or guardian regarding the historical points, exam findings, and any diagnostic results supporting the discharge/admit diagnosis, radiology results, the need for outpatient follow up, to return to the emergency department if symptoms worsen or persist or if there are any questions or concerns that arise at home. ED course: Discussed negative x-ray of right hand with patient. Discussed with patient necessity to follow-up with orthopedics and possible need for repeat imaging in 7 days if symptoms persist. Patient understands agrees with plan. All questions were answered. Return precautions discussed include worsening symptoms, or any other concerns. No signs of compartment syndrome present at time of discharge.. 02/10 08:56 Order name: Hand Right 3 View XRAY; Complete Time: 09:55 ms3 02/10 10:07 Order name: Splint; Complete Time: 10:12 ms3 Administered Medications: 09:01 Drug: HYDROcodone-acetaminophen PO 5 mg-325 mg 1 tabs PO once Route: PO; ko1 09:38 Follow up: Response: No adverse reaction; Pain is decreased ko1 Disposition Summary: 02/11/24 10:08 Discharge Ordered Notes: Location: Home ms3 Condition: Stable ms3 Diagnosis - Pain in hand and fingers ms3 Followup: ms3 - With: Vinayak Segura MD - When: 2 - 3 days - Reason: Recheck today's complaints Discharge Instructions: - Discharge Summary Sheet ms3 - Musculoskeletal Pain ms3 Forms: - Work release form ap3 - Medication Reconciliation Form ms3 - Antibiotic Education ms3 - Prescription Opioid Use ms3 - Patient Portal Instructions ms3 - Leadership Thank You Letter ms3 Prescriptions: - Ibuprofen 600 mg Oral Tablet - take 1 tablet ORAL route every 6 hours As needed take with food; 30 tablet; ms3 Refills: 0, Product Selection Permitted Signatures: Dispatcher [employer] Kristine Patel, RN RN Jarret Heath DO DO ms3 Kathrine Guallpa RN RN ko1 Corrections: (The following items were deleted from the chart) 08:56 08:56 Hand Right 3 View+RAD.RAD.[email or web address] ordered. EDMS EDMS
--- NOTE | 2024-02-11 10:08 | ER ---
Nurse's Notes [facility] Name: Eden Lott Age: 23 yrs Sex: Female : 2000 Arrival Date: 02/11/2024 Time: 08:38 Bed 8 Private MD: Diagnosis: Pain in hand and fingers Presentation: 02/10 08:53 Chief complaint: Patient states: R hand pain after getting it shut between garage door ss panels last night. Coronavirus screen: Client denies travel out of the [place] in the last 14 days. Ebola Screen: Patient denies exposure to infectious person. Patient denies travel to an Ebola-affected area in the 21 days before illness onset. Initial Sepsis Screen: Does the patient meet any 2 criteria? No. Patient's initial sepsis screen is negative. Does the patient have a suspected source of infection? No. Patient's initial sepsis screen is negative. Risk Assessment: Do you want to hurt yourself or someone else? Patient reports no desire to harm self or others. Onset of symptoms was February 10, 2024. 08:53 Method Of Arrival: Ambulatory ss 08:53 Acuity: ERIKA 4 ss Triage Assessment: 10:22 General: Appears uncomfortable. Injury Description: Bruise sustained to right hand was ko1 sustained 12-24 hours ago. 10:22 General: Behavior is anxious. 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 - Infectious Disease History:: Denies. - Social history:: Smoking status: Reported history of juuling and/or vaping. Screenin:02 [facility] ED Fall Risk Assessment (Adult) History of falling in the last 3 months, ko1 including since admission No falls in past 3 months (0 pts) Confusion or Disorientation No (0 pts) Intoxicated or Sedated No (0 pts) Impaired Gait No (0 pts) Mobility Assist Device Used No (0 pt) Altered Elimination No (0 pt) Score/Fall Risk Level 0 - 2 = Low Risk Oriented to surroundings, Maintained a safe environment, Educated pt \T\ family on fall prevention, incl call for assistance when getting out of bed, Assessed \T\ reinforced patient's understanding of fall precautions, Hourly rounding (assess needs \T\ fall precautionary measures) done. Abuse screen: Denies threats or abuse. Denies injuries from another. Nutritional screening: No deficits noted. Tuberculosis screening: No symptoms or risk factors identified. Assessment: 09:02 General: Appears uncomfortable, Behavior is cooperative, appropriate for age, anxious. ko1 Pain: Complains of pain in right hand. Neuro: No deficits noted. Cardiovascular: No deficits noted. Respiratory: No deficits noted. GI: No deficits noted. : No deficits noted. EENT: No deficits noted. Derm: No deficits noted. Musculoskeletal: Reports pain in right hand. Vital Signs: 08:53 Resp 14; Weight 63.05 kg; Height 5 ft. 1 in. ; Pain 10/10; ss 08:56 BP 126 / 95; Pulse 99; Resp 18; Temp 97.8; Pulse Ox 100% ; ko1 10:20 BP 124 / 78; Pulse 87; Resp 15; Pulse Ox 99% ; ko1 08:53 Body Mass Index 26.26 (63.05 kg, 154.94 cm) ss 08:53 Pain Scale: Adult ss ED Course: 08:42 Patient arrived in ED. sj2 08:51 Kathrine Guallpa, KEE is Primary Nurse. ko1 08:52 Jarret Cantrell DO is Attending Physician. ms3 08:54 Triage completed. ss 08:54 Arm band placed on right wrist. ss 08:55 ED physician to see patient. ko1 09:02 Patient has correct armband on for positive identification. Bed in low position. Call ko1 light in reach. Provided Education on: xray. Pulse ox on. NIBP on. Door closed. Noise minimized. Lights dimmed. Pillow given. 09:38 Hand Right 3 View XRAY In Process Unspecified. EDMS 10:08 Vinayak Segura MD is Referral Physician. ms3 10:20 No provider procedures requiring assistance completed. Patient did not have IV access ko1 during this emergency room visit. Richardson wrap to right hand Orthoglass splint: right hand. Administered Medications: 09:01 Drug: HYDROcodone-acetaminophen PO 5 mg-325 mg 1 tabs PO once Route: PO; ko1 09:38 Follow up: Response: No adverse reaction; Pain is decreased ko1 Medication: 09:02 VIS not applicable for this client. ko1 Outcome: 10:08 Discharge ordered by . ms3 10:20 Discharged to home ambulatory, ko1 10:20 Condition: stable 10:20 Discharge instructions given to patient, Instructed on discharge instructions, follow up and referral plans. medication usage, Demonstrated understanding of instructions, follow-up care, medications, splint care, Prescriptions given X 1, 10:23 Patient left the ED. ko1 Signatures: Dispatcher [employer] EDMS Kristine Dave, RN RN Jarret Heath DO DO ms3 Kathrine Guallpa RN RN ko1 Jarrell Medrano2
[2024-02-11 10:35] VITALS: TEMP 97.8
[2024-02-11 10:42] VITALS: BP 124/78; O2SAT 99
== END 2024-02-11 10:23 | disposition home or self-care (01) ==
LOC: ER 08:38
DX: M79.641 Pain in right hand (principal); M79.644 Pain in right finger(s)
CPT/HCPCS: 99284

== ENCOUNTER 2024-12-06 09:43 | Emergency (ER) | payer SELFPAY ==
--- OUTSIDE RECORDS SUMMARY | 2024-12-06 09:46 | XMS REPORT | Continuity of Care Document ---
Author Name Unknown Address [address] [place] [address] Organization [facility] [place] Address [address] [place] [address] Care Team Providers Care Patrol Community Service Officer Name Role Phone PCP, PATIENT DOES NOT HAVE A Primary Care Physic gilberto CLAUDIA Roper Attending Clinician CLAUDIA Mendez Attending Clinician Claudia Mendez DO Attending Clinician [phone] LORRIE MELGAR Attending Clinician Christiana Jacob RN Attending Clinician Unavailjacqueline e Doctor Unassigned, [place] Attending Clinician Shakeel Kenny DO Attending Clinician [phone] Payers Payer Name Policy Type Policy Number Effective Date Expirati on Date Source [facility] [id number] 1992 00:00:00 MEDICAID PENDING PENDING 2023 00:00:00 Problems Condition Name Condition Details Condition Category Status Onset Date Resolution Date Last Treatment Date Treating Clinician Comments Source Rubella non-immune status, antepartum Rubella non-immune status, antepartum Disease Active 03-29 00:00: 00 [facility] Susceptibl e to varicella (non-immun e), currently Susceptibl e to varicella (non-immun e), currently Disease Active 03-29 00:00: 00 Overview: Formattin g of this note might be different from the original. Address pp [facility] High risk , antepartum High risk , antepartum Disease Active 03-28 00:00: 00 [facility] History of hemorrhage , currently History of hemorrhage , currently Disease Active 03-28 00:00: 00 [facility] History of depression History of depression Disease Active 03-28 00:00: 00 [facility] Obesity in , antepartum Obesity in , antepartum Disease Active 03-28 00:00: 00 [facility] Bloody show and cramping in early Bloody show and cramping in early Disease Active 03-28 00:00: 00 [facility] Family history of congenital anomalies Family history of congenital anomalies Disease Active 03-28 00:00: 00 [facility] Mild hyperemesi s gravidarum Mild hyperemesi s gravidarum Disease Resolve d 2014-02 00:00: 00 2017-03-28 00:00:00 2017-03-28 08:17:32 [facility] Vaginal bleeding during , antepartum Vaginal bleeding during , antepartum Disease Resolve d 2014-02 00:00: 00 2017-03-28 00:00:00 2017-03-28 08:17:32 [facility] Threatened premature labor Threatened premature labor Disease Resolve d 2014-02 00:00: 00 2017-03-28 00:00:00 2017-03-28 08:17:32 [facility] Allergies, Adverse Reactions, Alerts Allergy Name Allergy Type Status Severity Reaction(s) Onset Date Inactive Date Treating Clinician Comments Source NO KNOWN ALLERGIE S Drug Class Active [facility] Social History Social Habit Start Date Stop Date Quantity Comments Source ASSERTION Not [facility] Exposure to SARS-CoV-2 (event) Not sure [facility] function 2024-06-24 00:00:00 2024-06-24 00:00:00 [facility] Alcoholic beverage intake 2024-06-24 00:00:00 2024-06-24 00:00:00 Current non-drinker of alcohol (finding) [facility] Alcohol intake 2018-07-27 00:00:00 2018-07-27 00:00:00 Current non-drinker of alcohol (finding) [facility] Tobacco use and exposure 2017-03-28 00:00:00 2017-03-28 00:00:00 Smokeless tobacco non-user [facility] Sex assigned at 2000 00:00:00 2000 00:00:00 [facility] Smoking Status Start Date Stop Date Source Never smoked tobacco [facility] Medications Ordered Medication Name Filled Medication Name Start Date Stop Date Current Medication? Ordering Clinician Indication Dosage Frequency Signature (SIG) Comments Components Source metoclopram jace HCl (REGLAN) injection 10 mg 06-25 05:15: 00 06-25 05:15 :00 No 10mg 10 mg, Slow IV Push, ONCE, 1 dose, On Mary 06/25/24 at 0015, SARAH BETH [facility] NaCl 0.9% (NS) bolus infusion 1,000 mL 06-25 04:30: 00 06-25 05:49 :00 No 1000mL at 999 mL/hr, 1,000 mL, IV Infusion, ONCE, 1 dose, On Sat06/24/24 at 2330, SARAH BETH [facility] ondansetron (ZOFRAN (PF)) injection 4 mg 06-25 03:45: 00 06-25 04:42 :00 No 4mg 4 mg, Slow IV Push, ONCE, 1 dose, On Sat06/24/24 at 2245, Administer over 2-5 Minutes, 2 mL [facility] VIT CALC,IRON,F OLIC ( VITAMIN ORAL) 06-25 00:53: 58 Yes 1{tbl} Take 1 tablet by mouth daily. [facility] ondansetron 4 mg disintegrat ing tablet 06-25 00:00: 00 Yes [id number] 4mg Take 1 tablet by mouth every 8 (eight) hours as needed for Nausea and Vomiting (N/V). [facility] albuterol 90 mcg/actuati on inhaler 07-04 00:00: 00 Yes [id number] 2{puff} Inhale 2 Puffs every 4 (four) hours as needed for Wheezing or Shortness of Breath. [facility] benzonatate 100 mg capsule 07-04 00:00: 00 Yes [id number] 100mg Take 1 capsule by mouth 3 (three) times daily as needed for Cough. [facility] VIT CALC,IRON,F OLIC ( VITAMIN ORAL) 03-28 14:42: 29 Yes 1{tbl} Take 1 tablet by mouth daily. [facility] VIT CALC,IRON,F OLIC ( VITAMIN ORAL) 03-28 08:42: 29 Yes 1{tbl} Take 1 tablet by mouth daily. [facility] PNV 67-iron ps-folate no.1-dha (VITAFOL ULTRA) 29 mg iron- 1 mg-200 mg Cap 03-28 00:00: 00 Yes 1{tbl} Take 1 tablet by mouth daily. [facility] PNV 67-iron ps-folate no.1-dha (VITAFOL ULTRA) 29 mg iron- 1 mg-200 mg Cap 03-28 00:00: 00 Yes 1{tbl} Take 1 tablet by mouth daily. [facility] Immunizations Ordered Immunization Name Filled Immunization Name Date Status Comments Source Influenza Virus Vaccine Quad IM 3+ YRS 2017-03-28 00:00:00 [facility] Influenza Virus Vaccine Quad IM 3+ YRS 2017-03-28 00:00:00 [facility] Influenza Virus Vaccine Quad IM 3+ YRS Unknown [facility] Influenza Virus Vaccine Quad IM 3+ YRS Unknown [facility] Vital Signs Vital Name Observation Time Observation Value Comments S karen Systolic blood pressure 2024-06-25 05:51:00 117 mm[Hg] [facility] Diastolic blood pressure 2024-06-25 05:51:00 70 mm[Hg] [facility] Heart rate 2024-06-25 05:51:00 79 /min [facility] Body temperature 2024-06-25 05:51:00 36.39 [facility] Respiratory rate 2024-06-25 05:51:00 16 /min [facility] Oxygen saturation in Arterial blood by Pulse oximetry 2024-06-25 05:51:00 98 /min [facility] Body height 2024-06-25 03:32:00 154.9 cm [facility] Body weight 2024-06-25 03:32:00 74.844 kg [facility] BMI 2024-06-25 03:32:00 31.18 kg/m2 [facility] Systolic blood pressure 2020-07-04 19:23:00 120 mm[Hg] [facility] Diastolic blood pressure 2020-07-04 19:23:00 79 mm[Hg] [facility] Heart rate 2020-07-04 19:23:00 86 /min [facility] Body temperature 2020-07-04 19:23:00 37.28 [facility] Respiratory rate 2020-07-04 19:23:00 20 /min [facility] Body weight 2020-07-04 19:23:00 78.926 kg [facility] Oxygen saturation in Arterial blood by Pulse oximetry 2020-07-04 19:23:00 100 /min [facility] Procedures Procedure Date / Time Performed Performing Clinicia n Source URINALYSIS 2024-06-25 05:14:00 [facility] 2024-06-25 05:12:00 Mackenzie Scruggs ra [facility] COMP. METABOLIC PANEL (66805) 2024-06-25 04:32:00 Claudia Scruggs [facility] CBC WITH DIFF 2024-06-25 04:32:00 [facility] ASSIGNMENT OF BENEFITS 2023-03-19 18:20:29 Docto r Unassigned, [place] ADC,CLC OR LCC ONLY - INFLUENZA A & B DIRECT ANTIGEN 2020-07-04 19:58:00 [facility] COVID-19 (ID NOW RAPID TESTING) 2020-07-04 19:58:00 [facility] NOTICE OF PRIVACY PRACTICES 2020-07-04 19:18:39 Doctor Unassigned, [place] CONSENT/REFUSAL FOR DIAGNOSIS AND TREATMENT 2020-07-04 19:18:16 Doctor Unassigned, [place] Encounters Start Date/Time End Date/Time Encounter Type Admission Type Attending [facility] Care Facility Care Department Encounter ID Source 2020-12-25 18:10:57 Emergency [facility] [id number] [facility] 2024-06-24 22:36:00 2024-06-25 00:53:00 Emergency X CLAUDIA SCRUGGS [facility] ERT [id number] [facility] 2024-06-24 22:36:00 2024-06-25 00:53:00 Emergency Claudia Scruggs [facility] 1..840.114 [id number] [facility] 2023-03-22 13:45:00 2023-03-22 13:45:00 Outpatient R LORRIE MELGAR [facility] [id number] [facility] 2023-03-19 12:30:00 2023-03-19 12:30:00 Outpatient R LORRIE MELGAR [facility] [id number] [facility] 2023-03-19 00:00:00 2023-03-19 00:00:00 Nurse Triage Christiana Sommers [facility] 1..840.114 [id number] [facility] 2023-03-19 00:00:00 2023-03-19 00:00:00 Orders Only Doctor Unassigned, [place] [facility] 1..840.114 [id number] [facility] 2020-07-04 14:27:00 2020-07-04 16:33:[address] [facility] [id number] [facility] Results Test Description Test Time Test Comments Results Result Co mments Source [facility] - INFLUENZA A & B DIRECT [id number] 20:41:10* Test Item Value Reference Range Interpretation Comme nts Influenza A (test code = 82202-5) Negative Negative Influenza B (test code = 93173-8) Negative Negative Lab Interpretation (test cod e = 43310-9) [facility] NOW [facility]APID TESTING)2020-07-04 20:38:26* Test Item Value Reference Range Interpretation Comme nts SARS-CoV-2 Rapid ID NOW (test code = 78889-4) Not Detected Not Detected ANU (test code = ANU) ID NOW COVID-19 As say is an isothermal nucleic acid amplification test intended for the qualitative detection of nucleic acid from SARS-CoV-2 viral RNA in nasopharyngeal (TOUCH UP PAINTER) specimens. It is used under Emergency Use [...] clinically indicated. Lab Interpretation (test code = 36499-5) [facility] Notes Date/Time Note Provider Source 2024-06-25 00:52:31 Pt given printed and verbal discharge instructions regarding nausea & vomiting and encouraged hydration. Prescription x1 sent to pharmacy Pt verbalized understanding of instructions, pt awake alert oriented, resp reg unlabored, skin w/d, color appropriate for race, moves all ext well,pt encouraged to follow up with pcp. Advised to seek medical attention for new/prolonged/worsening of symptoms, Symptoms vomiting not controled by medication No adverse reaction to meds given in ER noted upon discharge PIV d'cd, dressing to site, catheter in tact. Awake, alert oriented, resp reg unlabored, skin w/d, pt leaving ambulatory without assist, in no apparent distress, Jaimie Barahona RN [facility] 2024-06-24 23:45:00 Patient provided urine cup. Educated patient on sample needed. Myla Jessica RN [facility] 2024-06-24 22:32:57 Pt ambulatory to triage with CC of vomiting and diarrhea for the past couple days. Pt denies blood in stool or vomit. 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 She reports her son was sick prior to her however he is now improved. She last vomited about 10 minutes ago and last had diarrhea about 30 minutes ago. No blood in either. No abdominal pain. She is not lightheaded or dizzy. She denies being . Here for evaluation. Past Medical History/Immunizations: Past Medical History: Diagnosis Date Anemia 2015 during Breast disorder 2016 cyst in right breast, was to have it removed after 2nd , but did not f/u depression after both pregnancies, took antidepressants each time Severe depression 2017 after 2nd baby, resolved after 5 months Tetanus received in last 5 years: No Allergies: No Known Allergies Past Social History: Tobacco Use Never smoked or used smokeless tobacco. Alcohol Use No. Drug Use No. Sexual Activity Sexually active; Partners: Male; Control/Protection: None. Past Surgical History: History reviewed. No pertinent surgical history. Review of Systems: Review of Systems Constitutional: Negative for chills and fever. Respiratory: Negative for cough and shortness of breath. Cardiovascular: Negative for chest pain. Gastrointestinal: Positive for diarrhea, nausea and vomiting. Negative for abdominal pain. Genitourinary: Negative for dysuria. Musculoskeletal: Negative for arthralgias, neck pain and neck stiffness. Skin: Negative for wound. Neurological: Negative for dizziness. Psychiatric/Behavioral: Negative for agitation. Endocrine: Negative for goiter. Physical Exam: ED Triage Vitals [06/24/24 2232] Weight 74.8 kg (165 lb) Actual or estimated Height 1.549 m (5' 1") BP 120/90 Pulse 86 Resp 16 Temp 36.4 ?C (97.5 ?F) Temp src SpO2 98 % Measured on Room air Physical Exam Vitals and nursing note reviewed. Constitutional: Appearance: Normal appearance. HENT: Head: Normocephalic and atraumatic. Mouth/Throat: Mouth: Mucous membranes are dry. Cardiovascular: Rate and Rhythm: Normal rate. Pulses: Normal pulses. Pulmonary: Effort: Pulmonary effort is normal. Abdominal: General: There is no distension. Palpations: Abdomen is soft. Musculoskeletal: General: Normal range of motion. Cervical back: Neck supple. Skin: General: Skin is warm. Neurological: General: No focal deficit present. Mental Status: She is alert and oriented to person, place, and time. Radiology: No orders to display Lab Results: Lab Results URINALYSIS - Abnormal Result Value Ref Range APPEARANCE Slightly Cloudy (*) Clear COLOR Yellow Yellow PH 5.0 4.8 - 8.0 SP GRAVITY 1.027 1.003 - 1.030 GLU U QUAL Normal Normal BLOOD 1+ (*) Negative KETONES 20 mg/dL (*) Negative PROTEIN Negative Negative UROBILIN Normal Normal BILIRUBIN Negative Negative NITRITE Negative Negative LEUK SHAY Negative Negative RBC/HPF 2 0 - 3 HPF WBC/HPF 10 (*) 0 - 5 HPF BACTERIA Few (*) Negative MUCOUS Moderate (*) Negative LPF SQ EPITH 6 HPF HYAL CAST 3 (*) <=2 LPF CBC WITH DIFF - Abnormal WBC 7.66 4.30 - 11.10 10*3/?L RBC 4.43 3.93 - 5.25 10*6/?L HGB 14.4 11.6 - 15.0 g/dL HCT 42.7 35.7 - 45.2 % MCV 96.4 (*) 80.6 - 95.5 fL MCH 32.5 25.9 - 32.8 pg MCHC 33.7 31.6 - 35.1 g/dL RDW-SD 43.6 39.0 - 49.9 fL RDW-CV 12.3 12.0 - 15.5 % PLT 249 166 - 358 10*3/?L MPV 9.8 9.5 - 12.9 fL NRBC/100 WBC 0.0 0.0 - 10.0 /100 WBCs NRBC x10 3 <0.01 10*3/?L GRAN MAT (NEUT) % 64.3 % IMM GRAN % 0.10 % LYMPH % 25.2 % MONO % 8.1 % EOS % 2.0 % BASO % 0.3 % GRAN MAT x10 3 (ANC) 4.93 1.88 - 7.09 10*3/uL IMM GRAN x10 3 <0.03 0.00 - 0.06 10*3/uL LYMPH x10 3 1.93 1.32 - 3.29 10*3/uL MONO x10 3 0.62 0.33 - 0.92 10*3/uL EOS x10 3 0.15 0.03 - 0.39 10*3/uL BASO x10 3 <0.03 0.01 - 0.07 10*3/uL COMP. METABOLIC PANEL (37097) - Abnormal NA 138 135 - 145 mmol/L K 3.8 3.5 - 5.0 mmol/L CL 108 98 - 108 mmol/L CO2 TOTAL 19 (*) 23 - 31 mmol/L AGAP 11 2 - 16 BUN 18 7 - 23 mg/dL GLUCOSE 83 70 - 110 mg/dL CREATININE 0.68 0.50 - 1.04 mg/dL TOTAL BILI 0.5 0.1 - 1.1 mg/dL CALCIUM 8.9 8.6 - 10.6 mg/dL T PROTEIN 8.4 (*) 6.3 - 8.2 g/dL ALBUMIN 4.9 3.5 - 5.0 g/dL ALK PHOS 76 34 - 122 U/L ALTv 27 5 - 35 U/L AST(SGOT) 25 13 - 40 U/L eGFR 124.1 mL/min/1.73m2 POCT TEST - Normal POCT PREG Negative On board controls acceptable with C Line Yes POCT PREG LOT # [id number] POCT PREG TEST DATE 2025-09-17 EKG: If EKG completed, see Procedure Note. Orders and Treatments: Orders Placed This Encounter Procedures POCT TEST URINALYSIS CBC WITH DIFF COMP. METABOLIC PANEL (21127) Orders Placed This Encounter Medications NaCl 0.9% (NS) bolus infusion 1,000 mL ondansetron (ZOFRAN (PF)) injection 4 mg metoclopramide HCl (REGLAN) injection 10 mg ondansetron 4 mg disintegrating tablet First Provider Eval: ED Events Date/Time Event User Comments 06/24/242227 Medical Screening Begins CLAUDIA SCRUGGS DO -- 06/24/242227 First Provider Evaluation CLAUDIA SCRUGGS DO -- ED COURSE Diagnosis/Impression as of 06/25/24 0041 Nausea and vomiting, unspecified vomiting type Procedures: Procedures MDM: Medical Decision Making The patient presents from home for evaluation for nausea and vomiting that started 2 days ago. She reports her son was sick prior to her however he is now improved. She last vomited about 10 minutes ago and last had diarrhea about 30 minutes ago. No blood in either. No abdominal pain. She is not lightheaded or dizzy. She denies being . Vital signs are stable in the ER. Her abdomen is soft and nontender. She has dry mucous members on examination. Will give the patient IV fluids as well as antiemetics. Anticipate discharge home later when she is able to tolerate the patient is doing well here in the ER. 0041 - Her nausea and vomiting has resolved. She was given a p.o. challenge and able to tolerate by mouth without difficulty. Her laboratory studies are unremarkable and her UPT is negative. She remained stable here in the ER and is okay for discharge home with PCP follow-up. 0040 - Problems Addressed: Nausea and vomiting, unspecified vomiting type: acute illness or injury Amount and/or Complexity of Data Reviewed Labs: ordered. Decision-making details documented in ED Course. Risk Prescription drug management. Flowsheet Documentation: Scoring Tools: No data recorded Disposition/Condition: ED Disposition ED Disposition Discharge Condition Stable Comment -- Discharge Medications: Patient's Medications START taking these medications ONDANSETRON 4 MG DISINTEGRATING TABLET Take 1 tablet by mouth every 8 (eight) hours as needed for Nausea and Vomiting (N/V). CONTINUE taking these medications which have NOT CHANGED ALBUTEROL 90 MCG/ACTUATION INHALER Inhale 2 Puffs every 4 (four) hours as needed for Wheezing or Shortness of Breath. BENZONATATE 100 MG CAPSULE Take 1 capsule by mouth 3 (three) times daily as needed for Cough. PNV 67-IRON PS-FOLATE NO.1-DHA (VITAFOL ULTRA) 29 MG IRON- 1 MG-200 MG CAP Take 1 tablet by mouth daily. VIT CALC,IRON,FOLIC ( VITAMIN ORAL) Take 1 tablet by mouth daily. 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 ----- Eden Lott is a 22 year old female Sommers RN [facility] 2023-03-19 09:01:00 Triage Assessment Last Clinic Visit: 07/04/20, ER, cough Primary Symptom: vaginal bleeding Onset / Duration: today Location / Description: vaginal Pain / Severity: 07/04 Associated Symptoms: pale in color, passed 1 clot Fever / Method: denies Hydration: eating and drinking less, 16.9oz of water, last void 15 min ago, denies dysuria, has nausea, denies v/d Treatment so far: Tylenol 650mg 0800 Effect on ADL's: some Gestational Weeks: unknown, + test 03/01/23 Rupture Membranes: denies Bleeding / Spotting / Pads per hour: 1 pad Movement: NA Para / : EDC: NA Pre-existing condition / Immunocompromised: anemia, breast disorder, depression, severe depression Eden Lott is a 22 year old female [...] Call back advice given and pt verbalized understanding. Christiana Sommers RN Reason for Disposition Pale skin (pallor) of new onset or worsening Protocols used: - Vaginal Bleeding Less Than 20 Weeks [id number] GING SOLUT[employer] EXECUTIVE [facility]
[2024-12-06 10:31] LABS: Influenza A Ag Negative; Influenza B Ag Negative; SARS-CoV-2 Antigen Rapid Res Negative (Negative)
--- NOTE | 2024-12-06 10:37 | EDPHYS ---
Physician Documentation [facility] Name: Eden Lott Age: 24 yrs Sex: Female : 2000 Arrival Date: 12/06/2024 Time: 09:43 Bed 10 Private MD: ED Physician Hemant Sutton HPI: 12/06 09:50 This 24 yrs old Black Female presents to ER via Unassigned with complaints of Sore kb Throat. 09:50 Pt is a 24 year old female who presents for sore throat that started yesterday. States kb pain is worse with swallowing. Reports possible fever last night. Sibling had strep last week. 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 - Infectious Disease History:: Denies. - Social history:: Smoking status: Reported history of juuling and/or vaping. ROS: 09:50 Constitutional: As per HPI kb Exam: 09:51 Constitutional: This is a well developed, well nourished patient who is awake, alert, kb and in no acute distress. Head/Face: Normocephalic, atraumatic. Cardiovascular: Regular rate Respiratory: Respirations even and unlabored. No increased work of breathing. Talking in full sentences Skin: Warm, dry with normal turgor. Normal color. MS/ Extremity: Pulses equal, no cyanosis. Neurovascular intact. Full, normal range of motion. Neuro: Awake and alert, GCS 15, oriented to person, place, time, and situation. 09:51 ENT: Posterior pharynx: Airway: normal, no evidence of obstruction, Tonsils: bilaterally enlarged, with erythema, Uvula: normal, midline, swelling, that is moderate, erythema, that is moderate, exudate, is not appreciated, Vital Signs: 09:50 BP 124 / 61; Pulse 85; Resp 16; Temp 98.5; Pulse Ox 100% on R/A; Weight 74.84 kg; ll1 Height 5 ft. 2 in. ; Pain /; 09:50 Body Mass Index 30.18 (74.84 kg, 157.48 cm) ll1 09:50 Pain Scale: Adult ll1 MDM: 09:47 Medical Screening Exam initiated kb 09:50 Data reviewed: vital signs, nurses notes. kb 09:53 Differential diagnosis: pharyngitis, strep, tonsillitis, ACTUARIAL INTERN. kb 10:36 Counseling: I had a detailed discussion with the patient and/or guardian regarding the kb historical points, exam findings, and any diagnostic results supporting the discharge/admit diagnosis, lab results, the need for outpatient follow up, a family practitioner, to return to the emergency department if symptoms worsen or persist or if there are any questions or concerns that arise at home. 12/06 09:49 Order name: COVID-19 Ag + Flu A+B Ag; Complete Time: 10:36 kb 12/06 09:49 Order name: Group A Streptococcus Rapid; Complete Time: 10:28 kb 12/06 10:28 Order name: Throat Culture EDMS Administered Medications: No medications were administered Disposition: 13:58 Co-signature as Attending Physician, Hemant Sutton MD I reviewed the patient's care rn provided by the Advanced Practice Provider and agree with the diagnosis and treatment plan. Disposition Summary: 12/06/24 10:37 Discharge Ordered Notes: Location: Home kb Condition: Stable kb Diagnosis - Acute tonsillitis, unspecified kb Followup: kb - With: Emergency Department - When: As needed - Reason: Worsening of condition Followup: kb - With: Private Physician - When: 2 - 3 days - Reason: Recheck today's complaints, Continuance of care, Re-evaluation by your physician Discharge Instructions: - Discharge Summary Sheet kb - Tonsillitis, [id number] kb Forms: - Medication Reconciliation Form kb - Antibiotic Education kb - Prescription Opioid Use kb - Patient Portal Instructions kb - Leadership Thank You Letter kb Prescriptions: - Augmentin 875-125 mg Oral Tablet - take 1 tablet ORAL route every 12 hours for 10 days; 20 tablet; Refills: 0, kb Product Selection Permitted Signatures: Dispatcher [employer] EDMS Yanira Pina, EDITOR NEWSPAPER-C EDITOR NEWSPAPER-Hemant Altamirano MD MD rn Lewis, Lynsay, RN RN ll1 Corrections: (The following items were deleted from the chart) 09:50 09:50 COVID-19 Ag + Flu A+B Ag+I.LAB.BRZ ordered. EDMS EDMS 09:50 09:50 Group A Streptococcus Rapid Sc+I.LAB.BRZ ordered. EDMS EDMS
--- NOTE | 2024-12-06 10:37 | ER ---
Nurse's Notes [facility] Name: Eden Lott Age: 24 yrs Sex: Female : 2000 Arrival Date: 12/06/2024 Time: 09:43 Bed 10 Private MD: Diagnosis: Acute tonsillitis, unspecified Presentation: 12/06 09:50 Chief complaint: Patient states: Sore throat for 2 days with some fever. Coronavirus ll1 screen: Client denies travel out of the [place] in the last 14 days. congestion, fatigue, sore throat, Client presents with at least one sign or symptom that may indicate coronavirus-19. Standard/surgical mask placed on the client. Ebola Screen: Patient denies travel to an Ebola-affected area in the 21 days before illness onset. Initial Sepsis Screen: Does the patient meet any 2 criteria? No. Patient's initial sepsis screen is negative. Does the patient have a suspected source of infection? No. Patient's initial sepsis screen is negative. Risk Assessment: Do you want to hurt yourself or someone else? Patient reports no desire to harm self or others. Onset of symptoms was December 05, 2024. 09:50 Method Of Arrival: Ambulatory ll1 09:50 Acuity: ERIKA 4 ll1 Triage Assessment: 10:08 General: Appears uncomfortable, Behavior is calm, cooperative, appropriate for age, ll1 Reports fever for fatigue for. Pain: Complains of pain in throat Quality of pain is described as aching. EENT: Reports nasal congestion pain when swallowing. Neuro: Reports headache weakness. Cardiovascular: No deficits noted. 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 - Infectious Disease History:: Denies. - Social history:: Smoking status: Reported history of juuling and/or vaping. Screenin:09 [facility] ED Fall Risk Assessment (Adult) History of falling in the last 3 months, ll1 including since admission No falls in past 3 months (0 pts) Confusion or Disorientation No (0 pts) Intoxicated or Sedated No (0 pts) Impaired Gait No (0 pts) Mobility Assist Device Used No (0 pt) Altered Elimination No (0 pt) Score/Fall Risk Level 0 - 2 = Low Risk Maintained a safe environment, Hourly rounding (assess needs \T\ fall precautionary measures) done. Abuse screen: Denies threats or abuse. Nutritional screening: No deficits noted. Tuberculosis screening: No symptoms or risk factors identified. Assessment: 10:09 Reassessment: No changes from previously documented assessment. Patient and/or family ll1 updated on plan of care and expected duration. Pain level reassessed. Patient is alert, oriented x 3, equal unlabored respirations, skin warm/dry/pink. 10:40 Respiratory: Airway is patent Respiratory effort is even, unlabored, Breath sounds are ll1 clear bilaterally. EENT: Throat is reddened has enlarged tonsils bilaterally. Vital Signs: 09:50 BP 124 / 61; Pulse 85; Resp 16; Temp 98.5; Pulse Ox 100% on R/A; Weight 74.84 kg; ll1 Height 5 ft. 2 in. ; Pain 7/10; 09:50 Body Mass Index 30.18 (74.84 kg, 157.48 cm) ll1 09:50 Pain Scale: Adult ll1 ED Course: 09:46 Patient arrived in ED. im 09:47 Yan[facility]ina [facility]C [facility] kb 09:47 Hemant Sutton MD is Attending Physician. kb 09:56 Arm band placed on Patient placed in an exam room, on a stretcher. ll1 10:06 Rubio Summers, RN is Primary Nurse. ll1 10:06 COVID-19 Ag + Flu A+B Ag Sent. ll1 10:06 Group A Streptococcus Rapid Sent. ll1 10:07 Triage completed. ll1 10:09 Patient has correct armband on for positive identification. Bed in low position. ll1 Provided Education on: ER procedures and process. 10:40 No provider procedures requiring assistance completed. Patient did not have IV access ll1 during this emergency room visit. Administered Medications: No medications were administered Medication: 10:43 VIS not applicable for this client. ll1 Outcome: 10:37 Discharge ordered by . kb 10:40 Patient left the ED. ll1 10:40 Discharged to home ambulatory, ll1 10:40 Condition: stable 10:40 Discharge instructions given to patient, Instructed on discharge instructions, follow up and referral plans. medication usage, Demonstrated understanding of instructions, follow-up care, medications, Prescriptions given X 1, Signatures: Yanira Pina FNP-Viviane KENDRICK-Rubio Nance, RN RN ll1 Liz Flores
[2024-12-06 16:56] VITALS: BP 124/61; TEMP 98.5; O2SAT 100
== END 2024-12-06 10:40 | disposition home or self-care (01) ==
LOC: ER 09:43
DX: J03.90 Acute tonsillitis, unspecified (principal); Z11.52 Encounter for screening for COVID-19
CPT/HCPCS: 36415; 87070; 87428; 99283